=== PATIENT | male | born 1935 | race American Indian/Alaskan Native ===

== ENCOUNTER 2016-08-21 14:54 | Emergency (ER) | payer MEDICARE ==
--- NOTE | 2016-08-21 15:07 | ED PDOC ---
Arrival/HPI - General Time Seen by Provider: 08/21/16 15:06 Historian: Patient - History of Present Illness Narrative History of Present Illness (Text): 08/21/16 15:07 This 80 yo male with pmh HTN, BPH, presents to this ED c/o frontal WANG x 1 day. Patient admits an occasional cough. Patient feels light headedness. WANG is described as burning. Patient denies SOB, CP, diplopia, dysarthria, cmp, n/v, abnormal gait. Time/Duration: Other (1 day) Quality: Pressure Context: Home Past Medical History - Provider Review Nursing Documentation Reviewed: Yes - Infectious Disease Hx of Infectious Diseases: None - Tetanus Immunization Tetanus Immunization: Unknown - Cardiac Hx Hypertension: Yes Hx Pacemaker: No Other/Comment: admitted 05/01/16 for chest pain - Pulmonary Hx Respiratory Disorders: No - Neurological Hx Neurological Disorder: No - HEENT Hx HEENT Disorder: No - Renal Hx Renal Disorder: No - Endocrine/Metabolic Hx Endocrine Disorders: No - Hematological/Oncological Hx Blood Disorders: No - Integumentary Hx Dermatological Disorder: No - Musculoskeletal/Rheumatological Hx Falls: No - Gastrointestinal Hx Gastrointestinal Disorders: No Hx Gastroesophageal Reflux: Yes - Genitourinary/Gynecological Hx Prostate Problems: Yes - Psychiatric Hx Emotional Abuse: No Hx Physical Abuse: No Hx Substance Use: No - Past Surgical History Past Surgical History: No Previous - Surgical History Other/Comment: abd surgery - Anesthesia Hx Anesthesia Reactions: No Hx Malignant Hyperthermia: No - Suicidal Assessment Feels Threatened In Home Enviroment: No Family/Social History - Physician Review Nursing Documentation Reviewed: Yes Family/Social History: No Known Family HX Smoking Status: Never Smoked Hx Alcohol Use: No Hx Substance Use: No Allergies/Home Meds Allergies/Adverse Reactions: Allergies No Known Allergies Allergy (Verified 08/21/16 15:27) Home Medications: Home Meds Medication Instructions Recorded Confirmed Lisinopril/Hydrochlorothiazide 1 each PO DAILY 05/01/16 08/21/16 [Lisinopril-Hctz 20-12.5 mg Tab] Primidone [Mysoline] 50 mg PO HS 05/01/16 08/21/16 Tamsulosin [Flomax] 0.4 mg PO HS 05/01/16 08/21/16 Review of Systems - Review of Systems Constitutional: Normal. absent: Fatigue, Weight Change, Fevers, Night Sweats Eyes: Normal. absent: Vision Changes ENT: Normal Respiratory: Cough. absent: SOB, Sputum, Wheezing Cardiovascular: Normal. absent: Chest Pain, Palpitations Gastrointestinal: Normal. absent: Abdominal Pain, Vomiting, Appetite Changes Genitourinary Male: Normal. absent: Dysuria, Frequency, Hematuria Musculoskeletal: Normal Skin: Normal. absent: Rash Neurological: Headache, Other (vertigo. denies syncope). absent: Focal Weakness, Gait Changes, Speech Changes, Facial Droop, Disequilibrium, Seizure Endocrine: Normal Hemo/Lymphatic: Normal Psychiatric: Normal Physical Exam Vital Signs Temp Pulse Resp BP Pulse Ox 08/21/16 16:39 64 18 148/79 100 08/21/16 15:23 98.0 F 68 18 150/81 100 Temperature: Afebrile Blood Pressure: Normal Pulse: Regular Respiratory Rate: Normal Appearance: Positive for: Well-Appearing, Non-Toxic, Comfortable Pain Distress: None Mental Status: Positive for: Alert and Oriented X 3 - Systems Exam Head: Present: Atraumatic, Normocephalic, Other (Mild frontal sinuses tenderness ) Pupils: Present: PERRL Extroacular Muscles: Present: EOMI Conjunctiva: Present: Normal Ears: Present: Normal, NORMAL TM, Normal Canal. No: Erythema, TM Bulging, Fluid Mouth: Present: Moist Mucous Membranes Pharnyx: Present: Normal. No: ERYTHEMA, EXUDATE, TONSILS ENLARGED Nose (External): Present: Atraumatic Nose (Internal): Present: Normal Inspection. No: Clear Mucous, Rhinorrhea, Purulent Mucous Neck: Present: Normal Range of Motion, Trachea Midline. No: Meningeal Signs, MIDLINE TENDERNESS, Paraspinal Tenderness, Lymphadenopathy Respiratory/Chest: Present: Clear to Auscultation, Good Air Exchange. No: Respiratory Distress, Accessory Muscle Use, Wheezes, Decreased Breath Sounds, Rales, Retracting, Rhonchi, Tachypneic Cardiovascular: Present: Regular Rate and Rhythm, Normal S1, S2. No: Murmurs Abdomen: Present: Normal Bowel Sounds. No: Tenderness, Distention, Peritoneal Signs, Guarding Back: Present: Normal Inspection. No: CVA Tenderness Upper Extremity: Present: Normal Inspection, Normal ROM, NORMAL PULSES, Neurovascularly Intact, Capillary Refill < 2s. No: Cyanosis, Edema Lower Extremity: Present: Normal Inspection, NORMAL PULSES. No: Edema, CALF TENDERNESS Neurological: Present: GCS=15, CN II-XII Intact, Speech Normal, Normal Sensory Function, Normal Cerebellar Funct, Gait Normal, Other (No neuro focal deficits) Skin: Present: Warm, Dry, Normal Color. No: Rashes Psychiatric: Present: Alert, Oriented x 3, Normal Insight, Normal Concentration Medical Decision Making ED Course and Treatment: 08/21/16 20:00 Re-evaluation. Patient feels better. Discussed results and plan with patient who expresses understanding. All questions answered and there is agreement with the plan to discharge home with instructions. Patient stable for discharge. Return if symptoms persist or worsen. Patient has a normal gait. Denies dizziness at this time Re-evaluation Time: 20:00 Reassessment Condition: Re-examined, Improved - Lab Interpretations Lab Results: 08/21/16 16:05 08/21/16 16:05 Lab Results 08/21/16 16:33: Urine Color Yellow, Urine Appearance Clear, Urine pH 8.0, Ur Specific [place] 1.015, Urine Protein Negative, Urine Glucose (UA) Negative, Urine Ketones Negative, Urine Blood Negative, Urine Nitrate Negative, Urine Bilirubin Negative, Urine Urobilinogen 0.2, Ur Leukocyte Esterase Negative 08/21/16 16:05: WBC 5.9, RBC 4.53, Hgb 13.5 L, Hct 38.9 L, MCV 85.9, MCH 29.8, MCHC 34.7, RDW 15.3 H, Plt Count 126, MPV 10.5, Gran % 74.4 H, Lymph % (Auto) 19.7 L, [place] % (Auto) 5.1, Eos % (Auto) 0.8 L, Baso % (Auto) 0.0, Gran # 4.38, Lymph # 1.2, [place] # 0.3, Eos # 0.1, Baso # 0.00, Sodium 140, Potassium 4.3, Chloride 105, Carbon Dioxide 28, Anion Gap 11, BUN 17, Creatinine 0.9, Est GFR ( Amer) > 60, Est GFR (Non-Af Amer) > 60, Random Glucose 102, Calcium 9.0 , Total Bilirubin 0.7, AST 28, ALT 15, Alkaline Phosphatase 48, Total Protein 8.0, Albumin 3.8, Globulin 4.2, Albumin/Globulin Ratio 0.9 L I have reviewed the lab results: Yes Interpretation: No clinic. lab abnormalty - RAD Interpretation Narrative RAD Interpretations (Text): 08/21/16 18:31 Accession No. : [id number] Patient Name / ID : NADJA RONDON / [id number] Exam Date : 08/21/2016 17:22:53 ( Approved ) Study Comment : Sex / Age : M / 80Y Creator : Cordell Pope Dictator : Cordell Pope Clinical Research Administrator : Fire Sprinkler Service Technician : Cordell Pope Approver2 : Report Date : 08/21/2016 17:49:32 My Comment : PROCEDURE: CT HEAD WITHOUT CONTRAST. HISTORY: WANG COMPARISON: None available. TECHNIQUE: Axial computed tomography images were obtained through the head/brain without intravenous contrast. Radiation dose: Total exam DLP = 774.23 mGy-cm. FINDINGS: HEMORRHAGE: No intracranial hemorrhage. BRAIN: Foci of hypodensity seen at the right posterior gonzalez radiata adjacent and just above the right lateral ventricle of uncertain etiology. Findings main PA related to chronic microvascular ischemic disease. Other etiology is not totally excluded. Mild atrophy is noted. Mild white matter changes are also seen likely due to chronic microvascular ischemic disease. VENTRICLES: Unremarkable. No hydrocephalus. CALVARIUM: Unremarkable. PARANASAL SINUSES: Unremarkable as visualized. No significant inflammatory changes. MASTOID AIR CELLS: Partial opacification of the left mastoid is noted. OTHER FINDINGS: None. IMPRESSION: No evidence of acute intracranial hemorrhage territorial infarct mass effect or midline shift. Small foci of hypodensity seen at the posterior aspect of the right coronal radiata of uncertain etiology and may the due to chronic microvascular ischemic disease. Mild atrophy. Partial opacification of the left mastoid. 08/21/16 18:32 Accession No. : [id number] Patient Name / ID : NADJA RONDON / [id number] Exam Date : 08/21/2016 17:22:53 ( Approved ) Study Comment : Sex / Age : M / 80Y Creator : Cordell Pope Dictator : Cordell Pope Clinical Research Administrator : Fire Sprinkler Service Technician : Cordell Pope Approver2 : Report Date : 08/21/2016 17:49:32 My Comment : PROCEDURE: CT HEAD WITHOUT CONTRAST. HISTORY: WANG COMPARISON: None available. TECHNIQUE: Axial computed tomography images were obtained through the head/brain without intravenous contrast. Radiation dose: Total exam DLP = 774.23 mGy-cm. FINDINGS: HEMORRHAGE: No intracranial hemorrhage. BRAIN: Foci of hypodensity seen at the right posterior gonzalez radiata adjacent and just above the right lateral ventricle of uncertain etiology. Findings main PA related to chronic microvascular ischemic disease. Other etiology is not totally excluded. Mild atrophy is noted. Mild white matter changes are also seen likely due to chronic microvascular ischemic disease. VENTRICLES: Unremarkable. No hydrocephalus. CALVARIUM: Unremarkable. PARANASAL SINUSES: Unremarkable as visualized. No significant inflammatory changes. MASTOID AIR CELLS: Partial opacification of the left mastoid is noted. OTHER FINDINGS: None. IMPRESSION: No evidence of acute intracranial hemorrhage territorial infarct mass effect or midline shift. Small foci of hypodensity seen at the posterior aspect of the right coronal radiata of uncertain etiology and may the due to chronic microvascular ischemic disease. Mild atrophy. Partial opacification of the left mastoid. 08/21/16 20:01 CXR: NAD Radiology Orders: 08/21/16 15:53 HEAD W/O CONTRAST [CT] Stat SINUSES W/O CONTRAST [CT] Stat 08/21/16 18:24 CHEST PORTABLE [RAD] Stat - Medication Orders Current Medication Orders: Discontinued Medications Amoxicillin/Clavulanate Potassium (Augmentin 875 Mg-125 Mg Tab) 1 tab PO STAT STA PRN Reason: Protocol Stop: 08/21/16 18:46 Last Admin: 08/21/16 19:19 Dose: 1 TAB Sodium Chloride (Sodium Chloride 0.9%) 500 mls @ 999 mls/hr IV .Q31M STA Stop: 08/21/16 16:24 Last Admin: 08/21/16 16:17 Dose: 999 MLS/HR eMAR Start Stop Document 08/21/16 16:17 EQ (Rec: 08/21/16 16:17 EQ [facility] [id number]) Intravenous Solution Start Date 08/21/16 Start Time 16:17 Lisinopril (Zestril) 20 mg PO STAT STA Stop: 08/21/16 15:56 Last Admin: 08/21/16 16:17 Dose: 20 MG Meclizine HCl (Antivert) 25 mg PO STAT STA Stop: 08/21/16 18:46 Last Admin: 08/21/16 19:19 Dose: 25 MG Metoclopramide HCl (Reglan) 10 mg IVP STAT STA Stop: 08/21/16 15:55 Last Admin: 08/21/16 16:17 Dose: 10 MG IVP Administration Document 08/21/16 16:17 EQ (Rec: 08/21/16 16:17 EQ [facility] [id number]) Charges for Administration # of IVP Administrations 1 Disposition/Present on Arrival - Present on Arrival Any Indicators Present on Arrival: No History of DVT/PE: No History of Uncontrolled Diabetes: No Urinary Catheter: No History Surgical Site Infection Following: None - Disposition Have Diagnosis and Disposition been Completed?: Yes Diagnosis: Mastoiditis, Benign paroxysmal positional vertigo Disposition: HOME/ ROUTINE Disposition Time: 20:02 Patient Plan: Discharge Patient Problems: Current Active Problems Problem Status Diagnosed Benign paroxysmal positional vertigo Acute Mastoiditis Acute Condition: GOOD Discharge Instructions (ExitCare): Mastoiditis (ED), Vertigo (ED) Additional Instructions: Call Ear nose and Throat doctor office for follow up visit in 2-3 days. Also call neurologist for revaluation too. take medication as instructed. return to emergency if symptoms worsen. Prescriptions: Amoxicillin/Clavulanate [Augmentin 875 MG-125 MG] 1 tab PO BID #20 tab Meclizine [Meclizine*] 25 mg PO Q6 PRN #20 tab PRN Reason: Dizziness Referrals: Luz Elena Vazquez MD [Primary Care Provider] - Follow up with primary Leon Brody DO [Staff Provider] - Follow up with primary
[2016-08-21 15:25] VITALS: RESP 18; TEMP 98; O2SAT 100
[2016-08-21 15:50] VITALS: BMI 30.5
[2016-08-21] MEDS ORDERED: Sodium Chloride 0.9% 500 ML IV STA (15:54)
[2016-08-21 16:18] LABS: ADD MANUAL DIFF? NO
[2016-08-21 16:30] LABS: EOS # 0.1 (0.0-0.7); EOS % 0.8 % (1.5-5.0); GRAN # 4.38 (1.4-6.5); GRAN % 74.4 % (50.0-68.0); HEMATOCRIT 38.9 % (42.0-52.0); LYMPH # 1.2 (1.2-3.4); LYMPH % 19.7 % (22.0-35.0); MEAN CELL VOLUME 85.9 fL (80.0-105.0); MEAN CORPUSCULAR HEMOGLOBIN 29.8 pg (25.0-35.0); MEAN CORPUSCULAR HGB CONC 34.7 g/dl (31.0-37.0); MEAN PLATELET VOLUME 10.5 fl (7.0-11.0); MONO # 0.3 (0.1-0.6); MONO % 5.1 % (1.0-6.0); PLATELET COUNT 126 10^3/uL (120.0-450.0); RED CELL DISTRIBUTION WIDTH 15.3 % (11.5-14.5); WHITE BLOOD COUNT 5.9 10^3/ul (4.5-11.0)
[2016-08-21 16:32] LABS: ALB/GLOB RATIO 0.9 (1.1-1.8); ALKALINE PHOSPHATASE 48 U/L (38-133); ALT/SGPT 15 U/L (7-56); AST/SGOT 28 U/L (15-59); BILIRUBIN,TOTAL 0.7 mg/dL (0.2-1.3); BLOOD UREA NITROGEN 17 mg/dL (7-21); CARBON DIOXIDE 28 mmol/L (21-33); CHLORIDE 105 mmol/L (98-107); GFR AFRICAN-AMERICAN > 60; GLUCOSE,RANDOM 102 mg/dL (70-110); POTASSIUM 4.3 mmol/L (3.6-5.0); SODIUM 140 mmol/L (132-148)
[2016-08-21 17:36] LABS: URINE BILIRUBIN NEGATIVE (NEGATIVE); URINE BLOOD NEGATIVE (NEGATIVE); URINE GLUCOSE (UA) NEGATIVE (NEGATIVE); URINE KETONE NEGATIVE (NEGATIVE); URINE LEUKOCYTE ESTERASE NEGATIVE Leu/uL (NEGATIVE); URINE PROTEIN NEGATIVE mg/dL (<30 mg/dL); URINE UROBILINOGEN 0.2 E.U./dL (<1 E.U./dL)
[2016-08-21 17:43] LABS: URINE APPEARANCE CLEAR (CLEAR); URINE COLOR YELLOW (YELLOW)
--- NOTE | 2016-08-21 17:51 | CT ---
PROCEDURE: CT HEAD WITHOUT CONTRAST. HISTORY: WANG COMPARISON: None available. TECHNIQUE: Axial computed tomography images were obtained through the head/brain without intravenous contrast. Radiation dose: Total exam DLP = 774.23 mGy-cm. FINDINGS: HEMORRHAGE: No intracranial hemorrhage. BRAIN: Foci of hypodensity seen at the right posterior gonzalez radiata adjacent and just above the right lateral ventricle of uncertain etiology. Findings main PA related to chronic microvascular ischemic disease. Other etiology is not totally excluded. Mild atrophy is noted. Mild white matter changes are also seen likely due to chronic microvascular ischemic disease. VENTRICLES: Unremarkable. No hydrocephalus. CALVARIUM: Unremarkable. PARANASAL SINUSES: Unremarkable as visualized. No significant inflammatory changes. MASTOID AIR CELLS: Partial opacification of the left mastoid is noted. OTHER FINDINGS: None. IMPRESSION: No evidence of acute intracranial hemorrhage territorial infarct mass effect or midline shift. Small foci of hypodensity seen at the posterior aspect of the right coronal radiata of uncertain etiology and may the due to chronic microvascular ischemic disease. Mild atrophy. Partial opacification of the left mastoid.
--- NOTE | 2016-08-21 18:04 | CT ---
PROCEDURE: CT SINUSES WITHOUT CONTRAST HISTORY: frontal and maxillary sinus tenderness COMPARISON: None TECHNIQUE: Contiguous axial CT images of the paranasal sinuses were obtained. Coronal and sagittal reformats were generated. Radiation dose: Total exam DLP = 679.86 mGy-cm. FINDINGS: FRONTAL SINUSES: The frontal sinuses are well developed. There is no mucosal thickening or fluid. ETHMOID SINUSES: The ethmoid air cells are well developed. There is no mucosal thickening or fluid. SPHENOID SINUSES: The sphenoid sinus is well developed. There is pneumatization of the lateral recesses. There is no mucosal thickening or fluid. MAXILLARY SINUSES: The maxillary sinuses are well developed. There is mild mucosal thickening and a small retention cyst/ polyp in the right maxillary sinus. SINUS DRAINAGE: Osteomeatal complexes, frontal ethmoid and sphenoid ethmoid recesses are clear. NASAL SEPTUM: Deviated to the right. MASS: None. SKULL BASE: Unremarkable. TEMPORAL BONES: Middle ears and mastoid grossly unremarkable. OTHER FINDINGS: None. IMPRESSION: Mild mucosal thickening in the right maxillary sinus and a small retention cyst/ polyp. No evidence of acute sinusitis. Nasal septum deviated to the right.
[2016-08-21] MEDS ORDERED: Amoxicillin-Clav 875-125 mg Tab PO STA (18:45)
[2016-08-21 20:32] VITALS: BP 143/65; PULSE 65
--- NOTE | 2016-08-22 09:21 | RAD ---
HISTORY: cough COMPARISON: No prior. FINDINGS: LUNGS: No active pulmonary disease. PLEURA: No significant pleural effusion identified, no pneumothorax apparent. CARDIOVASCULAR: Normal. OSSEOUS STRUCTURES: No significant abnormalities. VISUALIZED UPPER ABDOMEN: Normal. OTHER FINDINGS: None. IMPRESSION: No active disease.
== END 2016-08-21 20:33 | disposition home or self-care (01) ==
LOC: ED 14:54
DX: H81.10 Benign paroxysmal vertigo, unspecified ear (principal); H70.90 Unspecified mastoiditis, unspecified ear; I10 Essential (primary) hypertension
CPT/HCPCS: 70450; 70486; 71010; 80053; 81003; 85025; 87086; 96374; 99285; J2765; J7040

== ENCOUNTER 2016-09-23 18:50 | Observation (INO) | payer MEDICARE, OTHER ==
[2016-09-23 19:12] LABS: ADD MANUAL DIFF? NO
[2016-09-23 19:46] LABS: ALKALINE PHOSPHATASE 63 U/L (38-133); ALT/SGPT 24 U/L (7-56); AST/SGOT 30 U/L (15-59); BILIRUBIN,TOTAL 0.5 mg/dL (0.2-1.3); BLOOD UREA NITROGEN 21 mg/dL (7-21); CARBON DIOXIDE 27 mmol/L (21-33); CHLORIDE 104 mmol/L (98-107); GFR AFRICAN-AMERICAN > 60; GLUCOSE,RANDOM 97 mg/dL (70-110); POTASSIUM 3.7 mmol/L (3.6-5.0); SODIUM 139 mmol/L (132-148); TOTAL PROTEIN 8.3 g/dL (5.8-8.3)
[2016-09-23 19:49] LABS: BASO # 0.01 K/mm3 (0.0-2.0); BASO % 0.2 % (0.0-3.0); EOS # 0.2 (0.0-0.7); EOS % 2.4 % (1.5-5.0); GRAN # 3.27 (1.4-6.5); GRAN % 53.2 % (50.0-68.0); HEMATOCRIT 37.3 % (42.0-52.0); LYMPH # 2.1 (1.2-3.4); LYMPH % 34.8 % (22.0-35.0); MEAN CORPUSCULAR HEMOGLOBIN 30.1 pg (25.0-35.0); MEAN CORPUSCULAR HGB CONC 35.4 g/dl (31.0-37.0); MEAN PLATELET VOLUME 11.1 fl (7.0-11.0); MONO # 0.6 (0.1-0.6); MONO % 9.4 % (1.0-6.0); PLATELET COUNT 135 10^3/uL (120.0-450.0); RED CELL DISTRIBUTION WIDTH 14.9 % (11.5-14.5); WHITE BLOOD COUNT 6.2 10^3/ul (4.5-11.0)
[2016-09-23 19:55] LABS: PARTIAL THROMBOPLASTIN TIME 27.1 Seconds (23.7-30.8)
[2016-09-23 19:56] LABS: TROPONIN I 0.05 ng/mL
[2016-09-23] MEDS ORDERED: Aspirin 325 mg EC Tablets PO STA (19:59)
[2016-09-23] MEDS ORDERED: Nitroglycerin 2% Ointment Foilpak UD TOP STA (19:59)
[2016-09-23] MEDS: Heparin25000 units/250ml 1/2NS 25,000 UNITS/250 ML BAG IV SCH (20:43)
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
[2016-09-24 02:20] LABS: TROPONIN I 0.05 ng/mL
[2016-09-24 02:53] VITALS: BMI 29.0
[2016-09-24 06:28] LABS: HEMATOCRIT 35.2 % (42.0-52.0); MEAN CELL VOLUME 86.5 fL (80.0-105.0); MEAN CORPUSCULAR HEMOGLOBIN 29.5 pg (25.0-35.0); MEAN CORPUSCULAR HGB CONC 34.1 g/dl (31.0-37.0); MEAN PLATELET VOLUME 11.5 fl (7.0-11.0); RED CELL DISTRIBUTION WIDTH 15.1 % (11.5-14.5); WHITE BLOOD COUNT 6.1 10^3/ul (4.5-11.0)
[2016-09-24 06:36] LABS: BLOOD UREA NITROGEN 20 mg/dL (7-21); CARBON DIOXIDE 29 mmol/L (21-33); CHLORIDE 105 mmol/L (98-107); GFR AFRICAN-AMERICAN > 60; GLUCOSE,RANDOM 85 mg/dL (70-110); MAGNESIUM 2.2 mg/dL (1.7-2.2); PHOSPHOROUS 3.7 mg/dL (2.5-4.5); POTASSIUM 3.4 mmol/L (3.6-5.0); SODIUM 140 mmol/L (132-148)
--- NOTE | 2016-09-24 07:40 | CP.PCM.PN ---
Addendum entered and electronically signed by Sadie Mi DO 09/24/16 13:17 : Cardio assessment: 04/2016: ECHO: 60-65% LVEF, mild LVH, mild aortic regurgitation, mild aortic stenosis vs aortic sclerosis, mild mitral regurgitation 04/2016: nuclear stress cardiac test: LVEF: 54%, probably negative SPECT performance study Original Note: <Sadie Mi - Last Filed: 09/24/16 13:07> Subjective - Date & Time of Evaluation Date of Evaluation: 09/24/16 Time of Evaluation: 07:20 - Subjective Subjective: ICU progress note for Dr. Boni Ramírez Pt s/e at bedside in the ICU this AM. NAEO. Patient states that his chest pain resolved in the ED and has not recurred since. Did wake up twice in the night to urinate, which is normal for him with this BPH. Denies any shoulder or jaw pain, palpitations, SOB, cough, fevers, chills, light headedness, heartburn, nausea, vomiting, dysuria, hematuria, back pain, or lower extremity swelling or pain. Objective - Vital Signs/Intake and Output Vital Signs (last 24 hours): Temp Pulse Resp BP Pulse Ox 98.2 F 53 L 19 158/73 H 95 09/24/16 01:08 09/24/16 05:50 09/24/16 05:50 09/24/16 05:00 09/24/16 05:50 Intake and Output: 09/24/16 09/24/16 06:59 18:59 Intake Total 509 Output Total 300 Balance 209 - Medications Medications: Current Medications Aspirin (Aspirin) 325 mg PO DAILY [facility] Clopidogrel Bisulfate (Plavix) 75 mg PO DAILY [facility] Heparin Sodium/Sodium Chloride (Heparin 83912 Units/250ml 1/2 Normal Saline) 25 ,000 units in 250 mls @ 9.798 mls/hr IV .Q24H AMADOU; 12 UNITS/KG/HR PRN Reason: Protocol Last Admin: 09/23/16 20:43 Dose: 9.798 mls/hr Sodium Chloride (Sodium Chloride 0.9%) 1,000 mls @ 75 mls/hr IV .[id number] [facility] Potassium Chloride (Potassium Chloride 20 Meq/100 Ml) 20 meq in 100 mls @ 50 mls/hr IVPB ONCE ONE Stop: 09/24/16 09:31 Potassium Chloride (Potassium Chloride 10 Meq/100 Ml) 10 meq in 100 mls @ 100 mls/hr IVPB ONCE ONE Stop: 09/24/16 08:31 Metoprolol Tartrate (Lopressor) 25 mg PO BID [facility] Pantoprazole Sodium (Protonix Inj) 40 mg IVP DAILY [facility] Stop: 09/25/16 10:01 Pantoprazole Sodium (Protonix Ec Tab) 40 mg PO 0630 [facility] - Labs Labs: 09/24/16 05:30 09/24/16 05:30 PT 10.8 Seconds (9.9-11.8) 09/23/16 19:05 INR 1.00 (0.93-1.08) 09/23/16 19:05 APTT 61.7 Seconds (23.7-30.8) H 09/24/16 05:30 - Constitutional Appears: Well, Non-toxic, No Acute Distress - Head Exam Head Exam: ATRAUMATIC, NORMOCEPHALIC - Eye Exam Eye Exam: Normal appearance. absent: Conjunctival injection, Scleral icterus - ENT Exam ENT Exam: Mucous Membranes Moist, Normal Oropharynx - Respiratory Exam Respiratory Exam: Clear to Ausculation Bilateral, NORMAL BREATHING PATTERN. absent: Accessory Muscle Use, Respiratory Distress - Cardiovascular Exam Cardiovascular Exam: RRR, +S1, +S2. absent: Clicks, Gallop, Murmur - GI/Abdominal Exam GI & Abdominal Exam: Soft. absent: Distended, Tenderness, Rebound - Extremities Exam Extremities Exam: Normal Inspection. absent: Calf Tenderness, Pedal Edema, Tenderness - Back Exam Back Exam: NORMAL INSPECTION. absent: CVA tenderness (L), CVA tenderness (R), vertebral tenderness - Neurological Exam Neurological Exam: Alert, Awake, CN II-XII Intact, Oriented x3 Neuro motor strength exam: Left Upper Extremity: 5, Right Upper Extremity: 5, Left Lower Extremity: 5, Right Lower Extremity: 5 - Psychiatric Exam Psychiatric exam: Normal Affect, Normal Mood - Skin Skin Exam: Dry, Intact, Normal Color, Warm Assessment and Plan - Assessment and Plan (Free Text) Assessment: 80 M with PMH of HTN, GERD, and BPH who presented for worsening chest pain on exertion for 6 months Neuro: AA&Ox3 CN II-XII intact No gross neurological deficits Plan Monitor for alterations in mental status Pulmonary: No respiratory distress, SPO2 stable on RA CXR: NAPD Plan Continue to monitor Cardio: Chest pain--resolved HR: 66 (42-74 over past 12 hours) BP: 132/61 (127/65-171/92 per 12 hours) EKG: QT elongation, persistent t-wave inversions in lateral leads, questionable LVH--possible anterolateral ischemia Troponin: 0.05->0.05->0.03 this AM Plan Follow up Lipid panel Daily CBC/BMP Cardiac cath tomorrow per cardiology consult Plavix 75mg PO, ASA 325, metoprolol 12.5 BID Heparin drip 12u/kg/h: Hold at 1AM 09/25 for cardiac cath Continue tele monitor Continue admission to ICU pending cardiac cath GI: Complains of chronic constipation Exam benign Plan Restart home miralax regimen: 17gm PO daily Continue to monitor Nephro: History of BPH with nocturia 1-2x/night No complaints at this time UOP: 0.68cc/kg/h (adequate) Hypokalemia: 3.4 down from 3.7 yesterday Plan Restart home tamsulosin 30mEq KCl IV Continue to monitor I&O's Repeat BMP tomorrow AM Supplement electrolytes PRN Heme/Onc: H/H 12.0/35.2 down from 13.2/37.3 yesterday Chronic mild anemia Plan Continue to monitor MSK: History of L knee arthritis with arthralgias Plan: Continue to monitor ASA 325 Prophylactic Measures: DVT: Heparin drip GI: Protonix 40 mg IV daily Dispo: Continue inpatient admission to the ICU for continued monitoring pending cardiac cath tomorrow Diet: HHD IVF: NS@75cc Patient seen and discussed with Dr. Boni Mi, PGY1 <Darrell PUGH,Boni H - Last Filed: 09/24/16 14:02> Objective - Vital Signs/Intake and Output Vital Signs (last 24 hours): Temp Pulse Resp BP Pulse Ox 99.1 F 62 22 118/69 99 09/24/16 13:55 09/24/16 13:40 09/24/16 13:40 09/24/16 13:00 09/24/16 13:40 Intake and Output: 09/24/16 09/24/16 06:59 18:59 Intake Total 509 Output Total 300 Balance 209 - Medications Medications: Current Medications Aspirin (Aspirin) 325 mg PO DAILY [facility] Last Admin: 09/24/16 09:13 Dose: 325 mg Clopidogrel Bisulfate (Plavix) 75 mg PO DAILY [facility] Last Admin: 09/24/16 09:12 Dose: 75 mg Heparin Sodium/Sodium Chloride (Heparin 12792 Units/250ml 1/2 Normal Saline) 25 ,000 units in 250 mls @ 9.798 mls/hr IV .Q24H AMADOU; 12 UNITS/KG/HR PRN Reason: Protocol Stop: 09/25/16 01:00 Last Admin: 09/23/16 20:43 Dose: 9.798 mls/hr Sodium Chloride (Sodium Chloride 0.9%) 1,000 mls @ 75 mls/hr IV .[id number] [facility] Metoprolol Tartrate (Lopressor) 12.5 mg PO BID [facility] Pantoprazole Sodium (Protonix Inj) 40 mg IVP DAILY [facility] Stop: 09/25/16 10:01 Last Admin: 09/24/16 09:12 Dose: 40 mg Pantoprazole Sodium (Protonix Inj) 40 mg IVP DAILY [facility] Stop: 09/25/16 10:01 Pantoprazole Sodium (Protonix Ec Tab) 40 mg PO 0630 [facility] Polyethylene Glycol (Miralax) 17 gm PO DAILY [facility] Last Admin: 09/24/16 09:19 Dose: 17 gm Tamsulosin HCl (Flomax) 0.4 mg PO HS [facility] - Labs Labs: 09/24/16 05:30 09/24/16 05:30 PT 10.8 Seconds (9.9-11.8) 09/23/16 19:05 INR 1.00 (0.93-1.08) 09/23/16 19:05 APTT 51.1 Seconds (23.7-30.8) H 09/24/16 12:03 Attending/Attestation - Attestation I have personally seen and examined this patient.: Yes I have fully participated in the care of the patient.: Yes I have reviewed all pertinent clinical information, including history, physical exam and plan: Yes Notes (Text): 09/24/16 14:01 80 y/o M w/ Unstable angina Treated with Nitro, asprin, Beta Blcokers, plavix and started on Heparin drip per protocol. Cardiology plans for cardiac cath Friday. No further CP today. HGB>9. Minimal o2. EKG lateral changes stable. Trop mild elevation. cc time 55 min
--- NOTE | 2016-09-24 08:15 | RAD ---
HISTORY: cp COMPARISON: 08/21/2016 FINDINGS: LUNGS: No active pulmonary disease. PLEURA: No significant pleural effusion identified, no pneumothorax apparent. CARDIOVASCULAR: Normal. OSSEOUS STRUCTURES: No significant abnormalities. VISUALIZED UPPER ABDOMEN: Normal. OTHER FINDINGS: None. IMPRESSION: No active disease.
[2016-09-24] MEDS: POLYETHYLENE GLYCOL 3350 17 GM/Dose PACKET PO SCH (09:19)
[2016-09-24 09:31] LABS: CHOLESTEROL 167 mg/dL (130-200)
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
--- NOTE | 2016-09-24 21:12 | CARD ---
APPROVED REPORT EKG Measurement Heart [id number] NM 150P28 [id number] <Conclusion> Sinus bradycardia T wave abnormality, consider anterolateral ischemia Prolonged QT Abnormal ECG
--- NOTE | 2016-09-24 22:54 | CARD ---
APPROVED REPORT EKG Measurement Heart [id number] SD 134P34 [id number] <Conclusion> Normal sinus rhythm T wave abnormality, consider anterior ischemia Abnormal ECG
--- NOTE | 2016-09-24 22:54 | CARD ---
APPROVED REPORT EKG Measurement Heart [id number] FL 142P39 [id number] <Conclusion> Normal sinus rhythm T wave abnormality, consider anterolateral ischemia Prolonged QT Abnormal ECG
[2016-09-24] MEDS: Sodium Chloride 0.9% 1,000 ML IV SCH (22:57)
[2016-09-24] MEDS: Heparin25000 units/250ml 1/2NS 25,000 UNITS/250 ML BAG IV SCH (23:04)
[2016-09-25 05:38] LABS: ADD MANUAL DIFF? NO
[2016-09-25 05:49] LABS: BASO # 0.01 K/mm3 (0.0-2.0); BASO % 0.1 % (0.0-3.0); EOS # 0.1 (0.0-0.7); EOS % 1.9 % (1.5-5.0); GRAN # 4.85 (1.4-6.5); GRAN % 65.2 % (50.0-68.0); HEMATOCRIT 36.7 % (42.0-52.0); LYMPH # 1.8 (1.2-3.4); LYMPH % 24.1 % (22.0-35.0); MEAN CELL VOLUME 85.2 fL (80.0-105.0); MEAN CORPUSCULAR HEMOGLOBIN 29.2 pg (25.0-35.0); MEAN CORPUSCULAR HGB CONC 34.3 g/dl (31.0-37.0); MEAN PLATELET VOLUME 10.6 fl (7.0-11.0); MONO # 0.7 (0.1-0.6); MONO % 8.7 % (1.0-6.0); PLATELET COUNT 124 10^3/uL (120.0-450.0); RED CELL DISTRIBUTION WIDTH 14.8 % (11.5-14.5); WHITE BLOOD COUNT 7.4 10^3/ul (4.5-11.0)
[2016-09-25 06:02] LABS: ALB/GLOB RATIO 0.9 (1.1-1.8); ALKALINE PHOSPHATASE 52 U/L (38-133); ALT/SGPT 27 U/L (7-56); AST/SGOT 30 U/L (15-59); BILIRUBIN,TOTAL 1.1 mg/dL (0.2-1.3); BLOOD UREA NITROGEN 12 mg/dL (7-21); CALCIUM 8.7 mg/dL (8.4-10.5); CARBON DIOXIDE 29 mmol/L (21-33); CHLORIDE 104 mmol/L (98-107); CHOLESTEROL 171 mg/dL (130-200); GFR AFRICAN-AMERICAN > 60; GLUCOSE,RANDOM 93 mg/dL (70-110); MAGNESIUM 1.8 mg/dL (1.7-2.2); PHOSPHOROUS 3.3 mg/dL (2.5-4.5); POTASSIUM 3.5 mmol/L (3.6-5.0); SODIUM 140 mmol/L (132-148); TOTAL PROTEIN 7.7 g/dL (5.8-8.3)
[2016-09-25] MEDS ORDERED: Pantoprazole 40 mg EC Tab PO SCH (06:30)
[2016-09-25] MEDS: Sodium Chloride 0.9% 1,000 ML IV SCH (07:02)
--- NOTE | 2016-09-25 07:09 | CP.PCM.PN ---
<Sadie Mi - Last Filed: 09/25/16 11:38> Subjective - Date & Time of Evaluation Date of Evaluation: 09/25/16 Time of Evaluation: 06:45 - Subjective Subjective: ICU progress note for Dr. Boni Ramírez Pt s/e at bedside this AM. Patient states that he had one episode of mild left sided chest pain overnight that resolved on its own after a few moments. Also reports a cough productive of small amount of thick mucus. Denies any pain radiating to his jaw or shoulder, SOB, post nasal drip, nasal congestion, fevers , chills, nausea, vomiting, dysuria, hematuria, pain or swelling in his legs. Patient denies a bowel movement but tolerated his diet yesterday well. Had 2-3 episodes of nocturia, which is his baseline 1040: Patient underwent a cardiac catheterization through the left radial artery and received a drug eluting stent in the proximal LAD for 90% stenosis. Tolerated procedure well with no complications and is now resting comfortably with stable vitals and no discomfort. Objective - Vital Signs/Intake and Output Vital Signs (last 24 hours): Temp Pulse Resp BP Pulse Ox 36.9 C 82 19 146/76 100 09/25/16 06:54 09/25/16 06:54 09/25/16 06:54 09/25/16 06:54 09/25/16 06:54 Intake and Output: 09/25/16 09/25/16 06:59 18:59 Intake Total 1120 Output Total 1300 Balance -180 - Medications Medications: Current Medications Aspirin (Aspirin) 325 mg PO DAILY [facility] Last Admin: 09/25/16 06:47 Dose: 325 mg Clopidogrel Bisulfate (Plavix) 75 mg PO DAILY [facility] Last Admin: 09/25/16 06:47 Dose: 75 mg Sodium Chloride (Sodium Chloride 0.9%) 1,000 mls @ 75 mls/hr IV .[id number] [facility] Last Admin: 09/24/16 22:57 Dose: 75 mls/hr Potassium Chloride (Potassium Chloride 10 Meq/100 Ml) 10 meq in 100 mls @ 100 mls/hr IVPB Q2H [facility] Stop: 09/25/16 09:59 Last Admin: 09/25/16 07:00 Dose: 100 mls/hr Metoprolol Tartrate (Lopressor) 12.5 mg PO BID [facility] Last Admin: 09/25/16 06:47 Dose: 12.5 mg Pantoprazole Sodium (Protonix Inj) 40 mg IVP DAILY [facility] Stop: 09/25/16 10:01 Last Admin: 09/25/16 06:47 Dose: 40 mg Pantoprazole Sodium (Protonix Ec Tab) 40 mg PO 0630 [facility] Polyethylene Glycol (Miralax) 17 gm PO DAILY [facility] Last Admin: 09/24/16 09:19 Dose: 17 gm Tamsulosin HCl (Flomax) 0.4 mg PO HS [facility] Last Admin: 09/24/16 22:57 Dose: 0.4 mg - Labs Labs: 09/25/16 05:15 09/25/16 05:15 PT 10.8 Seconds (9.9-11.8) 09/23/16 19:05 INR 1.00 (0.93-1.08) 09/23/16 19:05 APTT 27.4 Seconds (23.7-30.8) 09/25/16 05:15 - Constitutional Appears: Well, Non-toxic, No Acute Distress - Head Exam Head Exam: ATRAUMATIC, NORMOCEPHALIC - Eye Exam Eye Exam: Normal appearance. absent: Conjunctival injection, Scleral icterus - ENT Exam ENT Exam: Mucous Membranes Moist Additional comments: Posterior pharynx without any lesions but thick yellow mucous visible - Respiratory Exam Respiratory Exam: Clear to Ausculation Bilateral, NORMAL BREATHING PATTERN. absent: Accessory Muscle Use, Respiratory Distress - Cardiovascular Exam Cardiovascular Exam: RRR, +S1, +S2, Murmur (II/ systolic murmur over the R 2nd intercostal listening post) - GI/Abdominal Exam GI & Abdominal Exam: Soft. absent: Distended, Tenderness, Mass - Extremities Exam Extremities Exam: absent: Calf Tenderness, Pedal Edema, Tenderness Additional comments: pedal pulses present BL. TR band in place on left wrist, no signs of active bleeding or swelling, hands cool to the touch BL, but good capillary refill BL. - Back Exam Back Exam: NORMAL INSPECTION. absent: CVA tenderness (L), CVA tenderness (R) - Neurological Exam Neurological Exam: Alert, Awake, Oriented x3 - Psychiatric Exam Psychiatric exam: Normal Affect, Normal Mood - Skin Skin Exam: Dry, Intact, Normal Color, Warm Assessment and Plan - Assessment and Plan (Free Text) Assessment: 80 M with PMH of HTN, GERD, and BPH who presented for worsening chest pain on exertion for 6 months Neuro: AA&Ox3 CN II-XII intact No gross neurological deficits Plan Monitor for alterations in mental status Pulmonary: Complaining of mild cough Lung sounds clear to auscultation No respiratory distress, SPO2 stable on RA WBC: wnl Plan Continue to monitor Cardio: Chest pain recurred last night, less severe than presentation, resolved after a few moments HR: Stable BP: Mildly elevated overnight, currently 147/76 Lipid panel: LDL 76, HDL: 62 Cardiac catheterization with drug eluting stent placed in the proximal LAD for 90% stenosis Plan Daily CBC/BMP Start lipitor 40mg DIN Continue tele monitor Transfer to telemetry floor at 2PM if stable GI: Complains of chronic constipation-no BM for 1 day Exam benign Plan Restart home miralax regimen: 17gm PO daily Continue to monitor Nephro: History of BPH with nocturia 2x/night No complaints at this time UOP: 0.63cc/kg/h (adequate) Hypokalemia: 3.5 up from 3.4 yesterday s/p 30mEq IV M.8 down from 2.1 yesterday Plan Restart home tamsulosin 20mEq KCl IV Continue to monitor I&O's Repeat BMP tomorrow AM Repeat Mg tomorrow AM Supplement electrolytes PRN Heme/Onc: H/H 12.6/36.7 up from 12.0/35.2 yesterday Chronic mild anemia according to previous admissions Platelet dropped from 124,000 this AM to 6,000 after catheterization, manual platelet count: 10,000 Was on heparin drip for 36 hours, d/c'd 1AM today. Integrellin 40mg IV 1x dose used in the cardiac cath Plan F/u CBC at one PM f/u fibrin split products, fibrinogen, PT and PTT 2 units of platelets on hold ID: New onset of cough Lungs CTAB WBC: wnl Plan Continue to monitor respiratory exam, SPO2, and WBC MSK: History of L knee arthritis with arthralgias Plan: Continue to monitor Prophylactic Measures: DVT: SCD GI: Protonix 40 mg IV daily Dispo: Continue inpatient admission to the ICU pending repeat platelet count at one PM. Possible transfer to telemetry if thrombocytopenia resolves and patient remains stable Diet: HHD IVF: NS@100cc Patient seen and discussed with Dr. Boni Mi, PGY1 <Boni Ramírez MD - Last Filed: 09/25/16 12:46> Objective - Vital Signs/Intake and Output Vital Signs (last 24 hours): Temp Pulse Resp BP Pulse Ox 97.6 F 67 56 H 130/90 100 09/25/16 11:23 09/25/16 12:34 09/25/16 12:29 09/25/16 12:29 09/25/16 12:29 Intake and Output: 09/25/16 09/25/16 06:59 18:59 Intake Total 1120 Output Total 1300 Balance -180 - Medications Medications: Current Medications Aspirin (Ecotrin) 81 mg PO DAILY [facility] Atorvastatin Calcium (Lipitor) 40 mg PO DIN [facility] Clopidogrel Bisulfate (Plavix) 75 mg PO DAILY [facility] Last Admin: 09/25/16 09:39 Dose: Not Given Hydralazine HCl (Apresoline) 10 mg PO QID PRN PRN Reason: FOR SBP>170 7 diastolic>100 Hydrochlorothiazide (Microzide) 12.5 mg PO DAILY [facility] Sodium Chloride (Sodium Chloride 0.9%) 1,000 mls @ 100 mls/hr IV .Q10H [facility] Stop: 09/25/16 14:00 Last Admin: 09/25/16 09:39 Dose: 100 mls/hr Lisinopril (Zestril) 10 mg PO DAILY [facility] Metoprolol Tartrate (Lopressor) 12.5 mg PO BID [facility] Last Admin: 09/25/16 09:40 Dose: Not Given Pantoprazole Sodium (Protonix Ec Tab) 40 mg PO 0630 [facility] Polyethylene Glycol (Miralax) 17 gm PO DAILY [facility] Last Admin: 09/24/16 09:19 Dose: 17 gm Tamsulosin HCl (Flomax) 0.4 mg PO HS [facility] Last Admin: 09/24/16 22:57 Dose: 0.4 mg - Labs Labs: 09/25/16 09:30 09/25/16 09:30 PT 11.6 Seconds (9.9-11.8) 09/25/16 11:10 INR 1.07 (0.93-1.08) 09/25/16 11:10 APTT 32.9 Seconds (23.7-30.8) H 09/25/16 11:10 Attending/Attestation - Attestation I have personally seen and examined this patient.: Yes I have fully participated in the care of the patient.: Yes I have reviewed all pertinent clinical information, including history, physical exam and plan: Yes Notes (Text): 09/25/16 12:43 80 y/o M w/ NSTEMi Unstabe Angina S/P Cardiac catherization today L Radial approach Integrelin and Heparin used during and before the case. Post -op found to have platelet count of 6. Unlikely for HARRY, more likely transient due to medication induced. Send labs for ehmolytic anemia, and HARRY, DIC Platelets on hold. If repeat at 1p.m continues to be < 20k, platelets to be given. No signs of bleeding, CP, SOb or change in mental status currently. cc time 55 min
[2016-09-25] MEDS ORDERED: Lidocaine 2% Inj (20ml) ONE (07:56)
[2016-09-25] MEDS ORDERED: Nitroglycerin 50mg in D5W 50 MG/250 ML BOTTLE IV ONE (07:57)
[2016-09-25] MEDS ORDERED: Midazolam 2 MG/2 ML VIAL ONE (08:26)
[2016-09-25] MEDS ORDERED: Eptifibatide 20 mg/10mL Inj IVP ONE (08:49)
[2016-09-25] MEDS ORDERED: Iohexol 350 MG/100 ML VIAL ONE (08:52)
[2016-09-25] MEDS ORDERED: Iohexol 350mgl/ml 50 ML ONE (08:52)
[2016-09-25] MEDS ORDERED: Sodium Chloride 0.9% 1,000 ML IV SCH (09:30)
[2016-09-25 09:41] LABS: ADD MANUAL DIFF? NO
[2016-09-25 09:52] LABS: BLOOD UREA NITROGEN 12 mg/dL (7-21); CALCIUM 8.3 mg/dL (8.4-10.5); CARBON DIOXIDE 28 mmol/L (21-33); CHLORIDE 102 mmol/L (98-107); GFR AFRICAN-AMERICAN > 60; GLUCOSE,RANDOM 102 mg/dL (70-110); POTASSIUM 4.1 mmol/L (3.6-5.0); SODIUM 137 mmol/L (132-148)
--- NOTE | 2016-09-25 10:00 | PN ---
DATE: 09/25/2016 REASON FOR CONSULTATION AND FOLLOWUP: Acute coronary syndrome, chest pain, status post catheterizati on, status post PTCA of LAD proximal. BRIEF CLINICAL HISTORY: This is a 80-year-old male with a past medical history significant for benig n prostatic hypertrophy, hypertension, having chest pain, admitted with unstable angina. Subsequentl y, the patient underwent cardiac catheterization that revealed left main essentially free of signific ant disease, proximal LAD 90% stenosis at the takeoff of diagonal 1. Circumflex shows some luminal i rregularity. RCA is dominant, large caliber vessel, essentially free of significant disease. LV gra m done that showed ejection fraction 55-60%. Peak to peak gradient on pullback 10-12 and 20 mmHg acr oss the aortic valve noted, consistent with mild aortic stenosis. The patient successfully underwent PTCA with a drug-eluting stent in LAD from the left radial approac h, stable. Denies any chest pain, shortness of breath, any palpitation. PHYSICAL EXAMINATION: VITAL SIGNS: Temperature afebrile, heart rate 80, blood pressure 146/80. HEENT: PERRLA. Extraocular muscles intact. NECK: Supple. No carotid bruits. No thyromegaly. CHEST: Clear to auscultation. HEART: S1, S2 regular. ABDOMEN: Soft. EXTREMITIES: Clubbing and cyanosis negative. LABORATORY DATA: WBC 7.4, hemoglobin 12.____, hematocrit 36.7, platelet count 124. Chemistry shows sodium 140, potassium 3.5, chloride 104, carbon dioxide 20, anion gap of 11, BUN 12, creatinine 0.8. IMPRESSION: Acute coronary artery syndrome, unstable angina, status post percutaneous transluminal c oronary angioplasty of left anterior descending 90% stenosis, proximal, at the takeoff of diagonal 1 origin, mild aortic stenosis, hypertension, hypokalemia. RECOMMENDATION: Supplement potassium. Continue aspirin and Plavix. The patient will go to ICU and will be transferred back to telemetry after 2 p.m. Mandatory to continue aspirin and Plavix for 1 ye ar. Will start AUGUSTINE inhibitor from tomorrow as patient got 160 mL of contrast dye load. Will follow with you. Thank you, Dr. Vazquez, for providing the opportunity in taking care of this patient. Jordy Freeman MD cc: [phone] TT: 09/25/2016 09:59:30 Confirmation # [id number] Dictation # [id number] mn
[2016-09-25 10:04] LABS: BASO # 0.01 K/mm3 (0.0-2.0); BASO % 0.1 % (0.0-3.0); EOS # 0.1 (0.0-0.7); EOS % 1.7 % (1.5-5.0); GRAN # 4.75 (1.4-6.5); GRAN % 68.9 % (50.0-68.0); HEMATOCRIT 34.2 % (42.0-52.0); LYMPH # 1.4 (1.2-3.4); LYMPH % 19.6 % (22.0-35.0); MEAN CELL VOLUME 85.9 fL (80.0-105.0); MEAN CORPUSCULAR HEMOGLOBIN 29.9 pg (25.0-35.0); MEAN CORPUSCULAR HGB CONC 34.8 g/dl (31.0-37.0); MONO # 0.7 (0.1-0.6); MONO % 9.7 % (1.0-6.0); RED CELL DISTRIBUTION WIDTH 14.7 % (11.5-14.5); WHITE BLOOD COUNT 6.9 10^3/ul (4.5-11.0)
[2016-09-25 10:46] LABS: PLATELET COUNT 6 10^3/uL (120.0-450.0)
[2016-09-25 11:36] LABS: INR 1.07 (0.93-1.08); PARTIAL THROMBOPLASTIN TIME 32.9 Seconds (23.7-30.8)
[2016-09-25 11:56] LABS: FIBRINOGEN 454.9 mg/dL (187-400)
[2016-09-25 13:25] LABS: ADD MANUAL DIFF? NO
[2016-09-25 13:41] LABS: BASO # 0.01 K/mm3 (0.0-2.0); BASO % 0.2 % (0.0-3.0); EOS # 0.1 (0.0-0.7); EOS % 1.1 % (1.5-5.0); GRAN # 4.18 (1.4-6.5); GRAN % 64.9 % (50.0-68.0); HEMATOCRIT 35.3 % (42.0-52.0); LYMPH # 1.5 (1.2-3.4); LYMPH % 23.9 % (22.0-35.0); MEAN CELL VOLUME 85.7 fL (80.0-105.0); MEAN CORPUSCULAR HEMOGLOBIN 29.6 pg (25.0-35.0); MEAN CORPUSCULAR HGB CONC 34.6 g/dl (31.0-37.0); MEAN PLATELET VOLUME 10.7 fl (7.0-11.0); MONO # 0.6 (0.1-0.6); MONO % 9.9 % (1.0-6.0); PLATELET COUNT 65 10^3/uL (120.0-450.0); RED CELL DISTRIBUTION WIDTH 14.9 % (11.5-14.5); WHITE BLOOD COUNT 6.4 10^3/ul (4.5-11.0)
[2016-09-25] MEDS ORDERED: Bacitracin 500 Units/gm Oint Foilpak UD ONE (14:37)
[2016-09-25 15:36] LABS: ADD MANUAL DIFF? NO
[2016-09-25 15:44] LABS: BASO # 0.01 K/mm3 (0.0-2.0); BASO % 0.1 % (0.0-3.0); EOS # 0.2 (0.0-0.7); EOS % 2.3 % (1.5-5.0); GRAN % 59.1 % (50.0-68.0); HEMATOCRIT 35.2 % (42.0-52.0); LYMPH # 1.8 (1.2-3.4); LYMPH % 25.6 % (22.0-35.0); MEAN CELL VOLUME 84.6 fL (80.0-105.0); MEAN CORPUSCULAR HEMOGLOBIN 29.3 pg (25.0-35.0); MEAN CORPUSCULAR HGB CONC 34.7 g/dl (31.0-37.0); MEAN PLATELET VOLUME 10.9 fl (7.0-11.0); MONO # 0.9 (0.1-0.6); MONO % 12.9 % (1.0-6.0); PLATELET COUNT 78 10^3/uL (120.0-450.0); RED CELL DISTRIBUTION WIDTH 14.8 % (11.5-14.5)
--- NOTE | 2016-09-25 17:38 | CARD ---
APPROVED REPORT Procedure(s) performed: Left Heart Catheterization PTCA with Stenting of proximal to Mid LAD with TANYA HISTORY The patient is a 80 year-old male with a history of : most recent EF: 54%. (EF Method: RADIONUCLIDE), coronary artery disease, previous diagnostic cath, previous PCI (The PCI date was 05/18/2007), hypertension , dyslipidemia , Hx of Non obst CAD, admitted with ACS. INDICATION The indication(s) include : unstable angina . CASE TECHNIQUE The patient was brought urgently to the Cardiac Catheterization Laboratory in a fasting state and was prepped and draped in a sterile manner. The left wrist was infiltrated with 2% Lidocaine subcutaneous anesthesia. A 6 Fr Glidesheath (Radial) sheath was inserted into the left radial artery without difficulty. Coronary angiography was performed using coronary diagnostic catheters. The left coronary system was accessed and visualized with a Diagnostic ,5 Fr JL 3.5 catheter. The right coronary system was accessed and visualized with a 5 Fr JR 3.5 catheter. The left ventricle was accessed and visualized with a 5 Fr Pigtail 145 (Angled) catheter. Left ventricular/Aortic Valve gradient assessed on pullback. Left ventriculogram was performed in PICHARDO projection. Closure device was deployed with a Fr TR Band (Large) without any complications. The patient tolerated the procedure well and there were no complications associated with the procedure. Vessel Analysis The patient's coronary anatomy is co-dominant. The left main coronary artery is a large size vessel with diffuse calcification noted throughout this vessel and without significant stenosis. The left main bifurcates to the left anterior descending and circumflex. The left anterior descending artery is a medium size vessel with diffuse calcification noted throughout this vessel and with significant stenosis. There is a 90% stenosis in the proximal to Mid segment. at take off D1 The first diagonal branch is a small size vessel with diffuse calcification noted throughout this vessel and without significant stenosis. The second diagonal branch is a small size vessel with diffuse calcification noted throughout this vessel and without significant stenosis. The circumflex artery is a large size vessel with diffuse calcification noted throughout this vessel and without significant stenosis. The first obtuse marginal branch is a medium size vessel with diffuse calcification noted throughout this vessel and without significant stenosis. The second obtuse marginal branch is a medium size vessel with diffuse calcification noted throughout this vessel and without significant stenosis. The third obtuse marginal branch is a medium size vessel with diffuse calcification noted throughout this vessel and without significant stenosis. The left posterior descending artery is a medium size vessel with diffuse calcification noted throughout this vessel and without significant stenosis. The right coronary artery is a large size vessel with intimal irregularities and without significant stenosis. The right posterior descending artery is a medium size vessel with intimal irregularities and without significant stenosis. Left Ventricle The left ventricle is normal in size with normal contractility. There was no cardiomyopathy. The left ventricular ejection fraction is estimated to be 55-60%. The left ventricular end diastolic pressure is 15 mmHg. on pul back peak to Peak 20 mm gradient across Ao valve C/w mild . PCI Technique Lesion Anticoagulation was achieved with Heparin. Percutaneous coronary intervention was performed on the proximal to Mid left anterior descending artery segment. The lesion stenosis prior to intervention was 90% with ADONIS 2 flow. A 6 Fr XB 3.5 Guide Catheter was used to engage the ostium. BALLOON DILATION A Balloon catheter 2.5 x 10 mm Sprinter RX was inserted and inflated up to 10.00atm for 30seconds. STENT DEPLOYMENT A drug-eluting stent 2.75 x 12 mm Resolute TANYA was inserted and inflated up to 12.00atm for 18seconds. POST STENT DEPLOYMENT BALLOON DILATION A Balloon catheter 3.0 x 9 mm Sprinter NC was inserted and inflated up to 14.00atm for 15seconds. Final angiography reveals 0 % stenosis with ADONIS 3 flow. Conclusion Single Vessel Critical Proximal to Mid LAD 90% stenosis. Preserved LV Fx. EF-55-605, EDP-15 mmof Hg. Successful PTCA of LAD with TANYA through Left radial, done Recommendations Daily ASA with Plavix for at least one year Aggressive Medical TherapyCardiac Risk Reduction Program Weight Loss Reduction Program CC;' DRs. Vazquez/ [place].
[2016-09-25 18:35] LABS: ADD MANUAL DIFF? NO
[2016-09-25 18:37] LABS: BASO # 0.01 K/mm3 (0.0-2.0); BASO % 0.1 % (0.0-3.0); EOS # 0.2 (0.0-0.7); EOS % 2.1 % (1.5-5.0); GRAN % 63.6 % (50.0-68.0); HEMATOCRIT 35.6 % (42.0-52.0); LYMPH # 1.8 (1.2-3.4); LYMPH % 23.7 % (22.0-35.0); MEAN CORPUSCULAR HEMOGLOBIN 29.7 pg (25.0-35.0); MEAN CORPUSCULAR HGB CONC 34.6 g/dl (31.0-37.0); MEAN PLATELET VOLUME 10.4 fl (7.0-11.0); MONO # 0.8 (0.1-0.6); MONO % 10.5 % (1.0-6.0); PLATELET COUNT 78 10^3/uL (120.0-450.0); RED CELL DISTRIBUTION WIDTH 14.8 % (11.5-14.5); WHITE BLOOD COUNT 7.6 10^3/ul (4.5-11.0)
--- NOTE | 2016-09-25 18:46 | CARD ---
APPROVED REPORT EKG Measurement Heart [id number] <Conclusion> Sinus bradycardia T wave abnormality, consider anterolateral ischemia Abnormal ECG
--- NOTE | 2016-09-25 19:36 | PN ---
DATE: 09/25/2016 The patient is a 80-year-old black male who was admitted with epigastric discomfort. He was admitted in ICU, has been on heparin. Underwent cardiac catheterization this morning, shows 90% LAD, had chris g-eluting stent placed, doing well. PHYSICAL EXAMINATION: GENERAL: He is awake and alert, communicative. VITAL SIGNS: He is afebrile, pulse 60, respirations 18, blood pressure /91. LUNGS: Bilateral fair airflow, no rhonchi or crackle. HEART: S1, S2 audible. No murmur. ABDOMEN: Soft, nontender, no rebound, no guarding. NEUROLOGIC: The patient is awake and alert, communicative. LABORATORY EXAMINATION: WBCs 7.6, hemoglobin 12.3, hematocrit 35.6, platelets of 78. Chemistry: So dium 137, potassium 4.1, chloride 102, CO2 28, BUN 12, creatinine 0.8, blood sugar of 102. ASSESSMENT: 1. Coronary artery disease, status post angioplasty of left anterior descending. 2. Postprocedure thrombocytopenia, could be heparin-induced 3. Hypertension. 4. Hyperlipidemia. 5. Peptic ulcer disease. PLAN: We will follow up CBC in a.m. The patient has been started on aspirin. He is on Flomax, ator vastatin, metoprolol and Plavix and we will follow up his electrolytes and CBC in a.m. If he remains stable, we will discharge plan for morning. Luz Elena Vazquez MD cc: [phone] TT: 09/25/2016 19:35:49 Confirmation # [id number] Dictation # [id number] en
[2016-09-25] MEDS: guaiFENesin 100 mg/5 ml Syrup UD PO PRN (21:44)
[2016-09-26] MEDS: Pantoprazole 40 mg EC Tab PO SCH (06:11)
[2016-09-26 06:27] LABS: ADD MANUAL DIFF? NO
[2016-09-26 06:37] LABS: BASO # 0.01 K/mm3 (0.0-2.0); BASO % 0.1 % (0.0-3.0); EOS # 0.1 (0.0-0.7); EOS % 1.6 % (1.5-5.0); GRAN # 4.73 (1.4-6.5); GRAN % 67.6 % (50.0-68.0); HEMATOCRIT 37.7 % (42.0-52.0); LYMPH # 1.5 (1.2-3.4); LYMPH % 20.7 % (22.0-35.0); MEAN CELL VOLUME 85.3 fL (80.0-105.0); MEAN CORPUSCULAR HEMOGLOBIN 29.9 pg (25.0-35.0); MEAN PLATELET VOLUME 11.4 fl (7.0-11.0); MONO # 0.7 (0.1-0.6); PLATELET COUNT 97 10^3/uL (120.0-450.0); RED CELL DISTRIBUTION WIDTH 14.7 % (11.5-14.5)
[2016-09-26 07:07] LABS: BLOOD UREA NITROGEN 11 mg/dL (7-21); CALCIUM 8.9 mg/dL (8.4-10.5); CARBON DIOXIDE 28 mmol/L (21-33); CHLORIDE 104 mmol/L (98-107); GFR AFRICAN-AMERICAN > 60; GLUCOSE,RANDOM 102 mg/dL (70-110); MAGNESIUM 1.9 mg/dL (1.7-2.2); PHOSPHOROUS 3.5 mg/dL (2.5-4.5); POTASSIUM 3.5 mmol/L (3.6-5.0); SODIUM 140 mmol/L (132-148)
[2016-09-26] MEDS: POLYETHYLENE GLYCOL 3350 17 GM/Dose PACKET PO SCH (09:34)
--- NOTE | 2016-09-26 12:11 | CARD ---
APPROVED REPORT EKG Measurement Heart [id number] <Conclusion> Normal sinus rhythm ST & T wave abnormality, consider anterolateral ischemia Abnormal ECG
[2016-09-26] MEDS ORDERED: Potassium Chloride 20 mEq ER Tab PO ONE (14:21)
--- NOTE | 2016-09-26 14:47 | PN ---
DATE: 09/26/2016 REASON FOR CONSULTATION AND FOLLOWUP: Acute coronary syndrome, status post PTCA of LAD, transient th rombocytopenia. BRIEF CLINICAL HISTORY: This is a 80-year-old male with past medical history significant for benign prostatic hypertrophy, hypertension, having chest pain ____ unstable angina; history of cardiac cecelia terization in 04/2007, normal coronaries. Recent stress test was abnormal, so patient underwent card iac catheterization subsequently and a stent, drug-eluting, placed in the proximal to mid LAD. Posto p, found to be thrombocytopenic with repeat platelet count back to 65; but now it is 99. Denies any chest pain, shortness of breath, any palpitation. Feels a lot better. PHYSICAL EXAMINATION: VITAL SIGNS: Temperature afebrile, heart rate 63, blood pressure 154/110. HEENT: PERRLA. Extraocular muscles intact. NECK: Supple. No carotid bruits. No thyromegaly. CHEST: Clear to auscultation. HEART: S1, S2 regular. ABDOMEN: Soft. EXTREMITIES: Clubbing and cyanosis negative. Earlier blood pressure of 116/68. LABORATORY DATA: WBC 7, hemoglobin 13.2, hematocrit 37.7, platelet count 97. Chemistry shows sodium 140, potassium 3.5, chloride 104, carbon dioxide 28, anion gap of 12, BUN 11, creatinine 0.8. IMPRESSION: Acute coronary syndrome, unstable angina, status post primary angioplasty of left anteri or descending, mid, with a drug-eluting stent; hypertension, hyperlipidemia; significant thrombocytop enia, post percutaneous coronary intervention, possibly secondary to Integrilin. Later on, the plat elet bounce back to 97. Baseline, the patient is 135. Manual platelet count 110. RECOMMENDATION: Continue aspirin, continue atorvastatin, continue metoprolol 12.5. Continue Plavix. Follow up blood workup in the morning. Possible discharge in the a.m. Discussed with the patient' s son also, Javier Song Will follow with you. Thank you, Dr. Vazquez, for providing the opportunity in taking care of this patient. Ambulate and o ut of bed to chair, and out of telemetry to the medical floor. Repeat the blood workup in the [facility] Jordy Freeman MD cc: [phone] TT: 09/26/2016 14:46:20 Confirmation # [id number] Dictation # [id number] mn
[2016-09-26] MEDS: guaiFENesin 100 mg/5 ml Syrup UD PO PRN (21:25)
--- NOTE | 2016-09-26 22:50 | DS ---
The patient is a 79-year-old, seen and examined, lying in bed, seems to be comfortable. No chest herminio n, no shortness of breath. PHYSICAL EXAMINATION: VITAL SIGNS: He is afebrile, pulse 62, respirations 22, blood pressure 150/65. LUNGS: Bilateral good airflow, no rhonchi or crackle. HEART: S1, S2 audible. ABDOMEN: Soft, nontender, no rebound, no guarding. NEUROLOGIC: The patient is awake and alert, communicative. LABORATORY EXAM: WBC is 7.0, hemoglobin 13, hematocrit 37, platelet of 97. Chemistry: Sodium 140, potassium 3.5, chloride 104, CO2 of 28, BUN 11, creatinine 0.8, and blood sugar of 102. ASSESSMENT AND PLAN: 1. Status post chest pain, status post cardiac catheterization and left anterior descending angiopla sty. 2. Hypertension. 3. Hyperlipidemia. 4. Benign prostatic hypertrophy. 5. Gastritis. PLAN: The patient will be transferred to telemetry. He will be encouraged to ambulate. If he remai ns stable, he can be discharged later on today. His medication has been called to . He will be receiving aspirin 81 daily, Flomax 0.4 daily, atorvastatin 20 mg daily, metoprolol succinate 25 ba y at bedtime, and also the patient to continue on Plavix 75 daily and lisinopril 10 mg daily. I will follow up the patient next week in office since he developed thrombocytopenia, post-procedure that n eeds to be followed. Luz Elena Vazquez MD cc: [phone] TT: 09/26/2016 22:50:24 james
[2016-09-27] MEDS: guaiFENesin 100 mg/5 ml Syrup UD PO PRN (01:16)
[2016-09-27] MEDS: Pantoprazole 40 mg EC Tab PO SCH (05:32)
[2016-09-27 05:38] VITALS: O2SAT 98
[2016-09-27 07:28] LABS: HEMATOCRIT 34.2 % (42.0-52.0); MEAN CELL VOLUME 85.3 fL (80.0-105.0); MEAN CORPUSCULAR HEMOGLOBIN 29.4 pg (25.0-35.0); MEAN CORPUSCULAR HGB CONC 34.5 g/dl (31.0-37.0); MEAN PLATELET VOLUME 10.7 fl (7.0-11.0); RED CELL DISTRIBUTION WIDTH 14.7 % (11.5-14.5); WHITE BLOOD COUNT 6.6 10^3/ul (4.5-11.0)
[2016-09-27 07:56] LABS: BLOOD UREA NITROGEN 16 mg/dL (7-21); CALCIUM 8.7 mg/dL (8.4-10.5); CARBON DIOXIDE 28 mmol/L (21-33); CHLORIDE 103 mmol/L (98-107); GFR AFRICAN-AMERICAN > 60; GLUCOSE,RANDOM 98 mg/dL (70-110); PHOSPHOROUS 3.9 mg/dL (2.5-4.5); SODIUM 137 mmol/L (132-148)
[2016-09-27] MEDS: POLYETHYLENE GLYCOL 3350 17 GM/Dose PACKET PO SCH (09:03)
--- NOTE | 2016-09-27 10:18 | PN ---
DATE: 09/27/2016 REASON FOR CONSULTATION AND FOLLOWUP: Acute coronary syndrome, status post PTCA of LAD, transient th rombocytopenia, improved. BRIEF CLINICAL HISTORY: This is a 80-year-old male with a past medical history significant for benig n prostatic hypertrophy, hypertension. Admitted with an acute coronary syndrome, unstable angina, st atus post emergent angioplasty of LAD with a drug-eluting stent. During the procedure, patient got I ntegrilin. Transient, patient become thrombocytopenic, but repeat count, platelets bounced back. De nies any chest pain, shortness of breath, palpitation. No evidence of any obvious bleeding noted. PHYSICAL EXAMINATION: VITAL SIGNS: Temperature afebrile, heart rate 73, blood pressure 138/75. HEENT: PERRLA. Extraocular muscles intact. NECK: Supple. No carotid bruits. No thyromegaly. CHEST: Clear to auscultation. HEART: S1, S2 regular. ABDOMEN: Soft. EXTREMITIES: Clubbing, cyanosis negative. BLOOD WORKUP: WBC 6.6, hemoglobin 11.8, hematocrit 34.2, platelet count 102, improved. Admission pl atelets were 135. Chemistry shows sodium 137, potassium 4, chloride 103, carbon dioxide 28, anion ga p of 10, BUN 16, creatinine 1.0. IMPRESSION: Acute coronary syndrome, unstable angina, status post primary angioplasty of left anteri or descending, proximal to mid, with a drug-eluting stent, transient thrombocytopenia secondary to In tegrilin bolus dose, bounced back itself, does not require any intervention, hypertension, hyperlipid emia. RECOMMENDATION: Continue aspirin. Continue Plavix. Ambulate. Continue metoprolol. Continue lisin opril. Pressure is stable. We will discontinue telemetry. Possible discharge planning. Thank you, Dr. Vazquez, for providing us the opportunity in taking care of the patient. Jordy Freeman MD cc: [phone] TT: 09/27/2016 10:18:13 Confirmation # [id number] Dictation # [id number] en
--- NOTE | 2016-09-27 12:59 | DS ---
The patient is a 80-year-old, seen and examined, doing well. No chest pain, no shortness of breath. Eating and tolerating. Ambulating with no discomfort. PHYSICAL EXAMINATION: VITAL SIGNS: He is afebrile, pulse 76, respirations 18, blood pressure 138/75. LUNGS: Bilateral good airflow. No rhonchi or crackle. HEART: S1, S2 audible. ABDOMEN: Soft, nontender, no rebound, no guarding. NEUROLOGIC: He is awake, alert, communicative. LABORATORY EXAMINATION: WBC 6.6, hemoglobin 11.8, hematocrit 34.2, platelets 102. Chemistry: Sodiu m 137, potassium 4.0, chloride 103, CO2 28, BUN 16, creatinine 1.0, blood sugar of 98. ASSESSMENT: 1. Status post angioplasty, had left anterior descending 90% and underwent drug-eluting stent. 2. Hypertension. 3. Hyperlipidemia. 4. Benign prostatic hypertrophy. PLAN: The patient is being discharged home today. He is being discharged on aspirin 81 daily, Floma x 0.4 daily. He is on atorvastatin 40 mg daily. Metoprolol has been changed to succinate 25 daily. He is on Plavix 75 daily, Protonix 40 daily, lisinopril 10 mg daily. I will follow up in office nex t week. Luz Elena Vazquez MD cc: [phone] TT: 09/27/2016 12:59:16 en
[2016-09-27 13:16] VITALS: BP 120/73; PULSE 56; RESP 18; TEMP 98
== END 2016-09-27 14:45 | disposition home or self-care (01) ==
LOC: ED 18:50 → INTOOBSV 20:33 → ERH 20:33 → CCU 09-24 01:00 → 2RSO 09-26 13:23
PROVIDERS: ADMIT Internal Medicine; ATTEND Internal Medicine
PROC: 027034Z Dilation of Coronary Artery, One Artery with Drug-eluting Intraluminal Device, Percutaneous Approach (ICD-10-PCS; principal; 2016-09-25)
PROC: 4A023N7 Measurement of Cardiac Sampling and Pressure, Left Heart, Percutaneous Approach (ICD-10-PCS; 2016-09-25)
PROC: B211YZZ Fluoroscopy of Multiple Coronary Arteries using Other Contrast (ICD-10-PCS; 2016-09-25)
PROC: B215YZZ Fluoroscopy of Left Heart using Other Contrast (ICD-10-PCS; 2016-09-25)
PROC: 3E033PZ Introduction of Platelet Inhibitor into Peripheral Vein, Percutaneous Approach (ICD-10-PCS; 2016-09-25)
DX: I24.9 Acute ischemic heart disease, unspecified (principal); I25.110 Atherosclerotic heart disease of native coronary artery with unstable angina pectoris; D69.6 Thrombocytopenia, unspecified; D64.9 Anemia, unspecified; K27.9 Peptic ulcer, site unspecified, unspecified as acute or chronic, without hemorrhage or perforation; I35.0 Nonrheumatic aortic (valve) stenosis; I08.0 Rheumatic disorders of both mitral and aortic valves; K21.9 Gastro-esophageal reflux disease without esophagitis; E78.5 Hyperlipidemia, unspecified; I10 Essential (primary) hypertension; K29.70 Gastritis, unspecified, without bleeding; Z82.49 Family history of ischemic heart disease and other diseases of the circulatory system; Z87.891 Personal history of nicotine dependence; Z98.61 Coronary angioplasty status; R40.2412 Glasgow coma scale score 13-15, at arrival to emergency department; K59.09 Other constipation; N40.1 Benign prostatic hyperplasia with lower urinary tract symptoms; R35.1 Nocturia; E87.6 Hypokalemia; M17.12 Unilateral primary osteoarthritis, left knee; M25.562 Pain in left knee; T45.525A Adverse effect of antithrombotic drugs, initial encounter
CPT/HCPCS: 36415; 71010; 80048; 80053; 80061; 82550; 83036; 83615; 83735; 84100; 84443; 84484; 85025; 85027; 85175; 85362; 85384; 85610; 85730; 86850; 86900; 87081; 88112; 93005; 93458; 96361; 96374; 96375; 96376; 99152; 99153; 99285; C1725; C1769; C1874; C1887; C9113; C9600; G0378; J1327; J1644; J2250; J3010; J3480; J7030; J7040; Q9967

== ENCOUNTER 2017-02-18 15:03 | Emergency (ER) | payer MEDICARE, OTHER ==
[2017-02-18 15:26] VITALS: BMI 33.0
[2017-02-18 15:37] VITALS: TEMP 97.7
[2017-02-18 16:23] LABS: BASO # 0.01 K/mm3 (0.0-2.0); BASO % 0.2 % (0.0-3.0); EOS # 0.2 (0.0-0.7); EOS % 3.5 % (1.5-5.0); GRAN # 2.47 (1.4-6.5); GRAN % 45.9 % (50.0-68.0); HEMATOCRIT 34.1 % (42.0-52.0); LYMPH # 2.3 (1.2-3.4); LYMPH % 41.9 % (22.0-35.0); MEAN CELL VOLUME 85.9 fl (80.0-105.0); MEAN CORPUSCULAR HGB CONC 33.7 g/dl (31.0-37.0); MEAN PLATELET VOLUME 10.3 fl (7.0-11.0); MONO # 0.5 (0.1-0.6); MONO % 8.5 % (1.0-6.0); RED CELL DISTRIBUTION WIDTH 14.7 % (11.5-14.5); WHITE BLOOD COUNT 5.4 10^3/ul (4.5-11.0)
[2017-02-18 16:31] LABS: ALB/GLOB RATIO 1.2 (1.1-1.8); ALKALINE PHOSPHATASE 44 U/L (38-126); ALT/SGPT 30 U/L (7-56); AST/SGOT 37 U/L (17-59); BILIRUBIN,TOTAL 0.5 mg/dL (0.2-1.3); BLOOD UREA NITROGEN 22 mg/dL (7-21); CALCIUM 8.7 mg/dL (8.4-10.5); CARBON DIOXIDE 30 mmol/L (21-33); CHLORIDE 104 mmol/L (98-107); GFR AFRICAN-AMERICAN > 60; GLUCOSE,RANDOM 87 mg/dL (70-110); POTASSIUM 4.2 mmol/L (3.6-5.0); SODIUM 141 mmol/L (132-148); TOTAL PROTEIN 7.1 g/dL (5.8-8.3)
[2017-02-18 16:32] LABS: INR 1.05 (0.93-1.08); PARTIAL THROMBOPLASTIN TIME 26.8 Seconds (23.7-30.8)
--- NOTE | 2017-02-18 16:52 | RAD ---
HISTORY: Leg swelling COMPARISON: 09/23/2016 FINDINGS: LUNGS: The lungs are well inflated and clear. PLEURA: No significant pleural effusion identified, no pneumothorax apparent. CARDIOVASCULAR: 1stThe heart is normal in size. There is unfolding of aorta. OSSEOUS STRUCTURES: No significant abnormalities. VISUALIZED UPPER ABDOMEN: Normal. OTHER FINDINGS: None. IMPRESSION: No active pulmonary disease.
--- NOTE | 2017-02-18 17:00 | ED PDOC ---
Arrival/HPI - General Chief Complaint: Lower Extremity Problem/Injury Time Seen by Provider: 02/18/17 15:44 Historian: Patient - History of Present Illness Narrative History of Present Illness (Text): 02/18/17 16:57 81 yo M w/ pmh of HTN, high cholesterol, reports mild pain only when walking to the L lower leg and swelling both legs x 1 month. Patient states that he was in [place] for 1.5 months, and just returned today. He went to see his pmd, who advised him to go to the ER. Otherwise: (-) trauma, (-) chest pain, (-) dyspnea, (-) fever, (-) cough, (-) hemoptysis, (-) prior thromboembolic disease , (+) prolonged immobility or travel, (-) CHF, (-) known malignancy. PMD George Past Medical History - Provider Review Nursing Documentation Reviewed: Yes - Infectious Disease Hx of Infectious Diseases: None - Tetanus Immunization Tetanus Immunization: Unknown - Cardiac Hx Hypertension: Yes Other/Comment: admitted 05/01/16 for chest pain - Pulmonary Hx Respiratory Disorders: No - Neurological Hx Neurological Disorder: No - HEENT Hx HEENT Disorder: No - Renal Hx Renal Disorder: No - Endocrine/Metabolic Hx Endocrine Disorders: No - Hematological/Oncological Hx Blood Disorders: No - Integumentary Hx Dermatological Disorder: No - Musculoskeletal/Rheumatological Hx Falls: No - Gastrointestinal Hx Gastrointestinal Disorders: No Hx Gastroesophageal Reflux: Yes - Genitourinary/Gynecological Hx Prostate Problems: Yes - Psychiatric Hx Substance Use: No - Past Surgical History Past Surgical History: No Previous - Surgical History Other/Comment: abd. surgery - Anesthesia Hx Anesthesia Reactions: No Hx Malignant Hyperthermia: No - Suicidal Assessment Feels Threatened In Home Enviroment: No Family/Social History - Physician Review Nursing Documentation Reviewed: Yes Family/Social History: No Known Family HX Smoking Status: Never Smoked Hx Alcohol Use: No Hx Substance Use: No Allergies/Home Meds Allergies/Adverse Reactions: Allergies No Known Allergies Allergy (Verified 09/23/16 19:07) Home Medications: Home Meds Medication Instructions Recorded Confirmed Lisinopril/Hydrochlorothiazide 1 each PO DAILY 05/01/16 02/18/17 [Lisinopril-Hctz 20-12.5 mg Tab] Tamsulosin [Flomax] 0.4 mg PO DAILY 05/01/16 02/18/17 Metoprolol Succinate [Toprol XL] 25 mg PO DAILY 09/24/16 02/18/17 Atorvastatin [Lipitor] 20 mg PO HS 02/18/17 02/18/17 Clopidogrel [Plavix] 75 mg PO DAILY 02/18/17 02/18/17 Review of Systems - Review of Systems Constitutional: Normal. absent: Fatigue, Weight Change, Fevers Respiratory: Normal. absent: SOB, Cough, Sputum Cardiovascular: Normal, Edema. absent: Chest Pain, Palpitations Musculoskeletal: Normal, Arthralgias. absent: Back Pain, Neck Pain, Joint Swelling Skin: Normal. absent: Rash, Pruritis, Skin Lesions Physical Exam - Physical Exam Narrative Physical Exam (Text): 02/18/17 17:01 GENERAL APPEARANCE: Patient is awake, alert, oriented x 3, in no acute distress. SKIN: Warm, dry; (-) cyanosis; (-) rash. HEAD: (-) scalp swelling, (-) tenderness. EYES: (-) conjunctival pallor, (-) scleral icterus. ENMT: Pharynx: (-) erythema; airway patent: (-) stridor; mucous membranes moist. NECK: (-) tenderness, (-) stiffness, (-) lymphadenopathy, (-) thyromegaly. CHEST AND RESPIRATORY: (-) rales, (-) rhonchi, (-) wheezes, (-) pleural friction rub; breath sounds equal bilaterally. HEART AND CARDIOVASCULAR: (-) irregularity; (-) murmur, (-) gallop, (-) pericardial rub. ABDOMEN AND GI: Soft; (-) tenderness, (-) guarding, (-) rebound, (-) palpable masses, (-) CVA tenderness. EXTREMITIES: (-) tenderness, (+) 1+ edema to b/l LE, (-) palpable cord. Distal pulses: 2+. NEURO AND PSYCH: Mental status as above. Cranial nerves grossly intact; strength symmetric. Vital Signs Temp Pulse Resp BP Pulse Ox 02/18/17 15:04 97.7 F 58 L 18 154/69 H 98 Medical Decision Making ED Course and Treatment: 02/18/17 17:00 81 yo M w/ pmh of HTN, high cholesterol, reports mild pain only when walking to the L lower leg and swelling both legs x 1 month. DDx : r/o DVT, CHF, dependent edema Plan: -- Labs -- IV -- Urinalysis -- EKG -- CXR -- Reassess and disposition -- b/l Doppler US LE 02/18/17 17:01 EKG: SB at 52 bpm, (-) acute ST changes, as read by [facility]. CXR : NAD, as read by [facility] US doppler : (-) of DVT to b/l LE, as per US tech. On reevaluation, patient is resting in bed comfortably in no acute distress, reports no CP, no SOB. Lab results reviewed : bnp (-), rest of the labs are wnl. US shows no DVT. Results d/w the patient in great detail. Case d/w Dr. Vazquez agree with outpt f/u in her office, request a Rx to be given to the patient for lasix 15 mg to take every other day for 1 week and to f/u in her office. Otherwise advised to follow up with primary care physician in 1-2 days without fail. Advised to take medication as instructed. Elevate both legs, use compression socks especially during long travel. Return to the emergency room at any time for any new or worsening symptoms. Patient states he fully agrees with and understands discharge instructions. States that he agrees with the plan and disposition. Verbalized and repeated discharge instructions and plan. I have given the patient opportunity to ask any additional questions. - Lab Interpretations Lab Results: 02/18/17 16:05 02/18/17 16:05 Lab Results 02/18/17 16:05: Sodium 141, Potassium 4.2, Chloride 104, Carbon Dioxide 30, Anion Gap 11, BUN 22 H, Creatinine 1.0, Est GFR ( Amer) > 60, Est GFR ( Non-Af Amer) > 60, Random Glucose 87, Calcium 8.7, Total Bilirubin 0.5, AST 37, ALT 30, Alkaline Phosphatase 44, NT-Pro-B Natriuret Pep 222, Total Protein 7.1, Albumin 3.8, Globulin 3.3, Albumin/Globulin Ratio 1.2 02/18/17 16:05: PT 11.3, INR 1.05, APTT 26.8 02/18/17 16:05: WBC 5.4, RBC 3.97, Hgb 11.5 L, Hct 34.1 L, MCV 85.9, MCH 29.0, MCHC 33.7, RDW 14.7 H, Plt Count 106 L, MPV 10.3, Gran % 45.9 L, Lymph % (Auto) 41.9 H, Haskell % (Auto) 8.5 H, Eos % (Auto) 3.5, Baso % (Auto) 0.2, Gran # 2.47, Lymph # 2.3, Haskell # 0.5, Eos # 0.2, Baso # 0.01 - RAD Interpretation Radiology Orders: 02/18/17 15:57 CHEST PORTABLE [RAD] Stat DUPLEX LOWER EXTRM VEIN BILAT [US] Stat - PA / TRACKWALKER / Resident Statement MD/DO has reviewed & agrees with the documentation as recorded. Disposition/Present on Arrival - Present on Arrival Any Indicators Present on Arrival: No History of DVT/PE: No History of Uncontrolled Diabetes: No Urinary Catheter: No History of Decub. Ulcer: No History Surgical Site Infection Following: None - Disposition Have Diagnosis and Disposition been Completed?: Yes Diagnosis: Leg edema Disposition: HOME/ ROUTINE Disposition Time: 17:00 Patient Plan: Discharge Condition: STABLE Discharge Instructions (ExitCare): Leg Edema (ED) Print Language: UZBEK Additional Instructions: Thank you for letting us take care of you today. You were treated for leg edema. The emergency medical care you received today was directed at your acute symptoms. If you were prescribed any medication, please fill it and take as directed - take lasix every other day for 1 week. Elevate legs, wear compression socks. It may take several days for your symptoms to resolve. Return to the Emergency Department if your symptoms worsen, do not improve, or if you have any other problems. Please contact your doctor in 2 days for re-evaluation and follow up. Bring any paperwork you were given at discharge with you along with any medications you are taking to your follow up visit. Our treatment cannot replace ongoing medical care by a primary care provider (PCP) outside of the emergency department. [facility]. If you had an X-Ray : A Radiologist will review the ED reading if any change in treatment is needed we will contact you. Prescriptions: Furosemide [Lasix] 20 mg PO MWF #4 tab Referrals: Luz Elena Vazquez MD [Primary Care Provider] - Follow up with primary Forms: Mosoro (Malagasy)
[2017-02-18 17:28] LABS: URINE BILIRUBIN NEGATIVE (NEGATIVE); URINE BLOOD TRACE-INTACT (NEGATIVE); URINE GLUCOSE (UA) NEGATIVE (NEGATIVE); URINE KETONE NEGATIVE (NEGATIVE); URINE LEUKOCYTE ESTERASE NEGATIVE Leu/uL (NEGATIVE); URINE PROTEIN NEGATIVE mg/dL (<30 mg/dL); URINE UROBILINOGEN 0.2 E.U./dL (<1 E.U./dL)
[2017-02-18 17:29] LABS: URINE APPEARANCE CLEAR (CLEAR); URINE COLOR YELLOW (YELLOW)
[2017-02-18 17:37] LABS: URINE BACTERIA FEW (NEG); URINE EPITHELIAL CELLS 0 - 2 /hpf (0-5); URINE RBC 0 - 2 /hpf (0-2); URINE WBC 0 - 2 /hpf (0-6)
[2017-02-18 17:47] VITALS: BP 145/69; PULSE 65; RESP 16; O2SAT 100
--- NOTE | 2017-02-18 18:04 | US ---
HISTORY: Leg pain and swelling. Evaluate for DVT PHYSICIAN(S): Karan Pérez MD. TECHNIQUE: Duplex sonography and color-flow Doppler with graded compression were used to evaluate the deep venous systems of both lower extremities. FINDINGS: The visualized deep venous systems of both lower extremities are sonographically normal and compressible. Normal wave forms and augmentation are seen. There is no sonographic evidence for deep venous thrombosis in the visualized segments of both lower extremities. IMPRESSION: No sonographic evidence for deep venous thrombosis in the visualized segments of both lower extremities.
--- NOTE | 2017-02-19 11:42 | CARD ---
APPROVED REPORT EKG Measurement Heart [id number] <Conclusion> Sinus bradycardia T wave abnormality, consider lateral ischemia Abnormal ECG
== END 2017-02-18 17:48 | disposition home or self-care (01) ==
LOC: ED 15:03
DX: R60.0 Localized edema (principal); I10 Essential (primary) hypertension; E78.00 Pure hypercholesterolemia, unspecified

== ENCOUNTER 2017-02-20 23:15 | Emergency (ER) | payer MEDICARE, OTHER ==
[2017-02-20 23:35] VITALS: BMI 32.3
[2017-02-20 23:52] VITALS: BP 150/80; PULSE 74; RESP 18; TEMP 98.1; O2SAT 99
--- NOTE | 2017-02-21 00:12 | ED PDOC ---
Arrival/HPI - General Chief Complaint: Lower Extremity Problem/Injury Time Seen by Provider: 02/21/17 00:04 - History of Present Illness Narrative History of Present Illness (Text): 02/21/17 00:07 81-year-old male presents emergency Department with left lower extremity pain or swelling. Patient denies any Chest pain, shortness of breath, dyspnea on exertion. Patient's previous, records reviewed, he was seen on 02/18/17, had neg. BNP and neg. US for DVT. Pt was dc'd home on lasix every other day per Dr. Vazquez's request. . Pt requesting a L. hip xray. Past Medical History - Provider Review Nursing Documentation Reviewed: Yes - Infectious Disease Hx of Infectious Diseases: None - Tetanus Immunization Tetanus Immunization: Unknown - Cardiac Hx Hypertension: Yes Other/Comment: admitted 05/01/16 for chest pain - Pulmonary Hx Respiratory Disorders: No - Neurological Hx Neurological Disorder: No - HEENT Hx HEENT Disorder: No - Renal Hx Renal Disorder: No - Endocrine/Metabolic Hx Endocrine Disorders: No - Hematological/Oncological Hx Blood Disorders: No - Integumentary Hx Dermatological Disorder: No - Musculoskeletal/Rheumatological Hx Falls: No - Gastrointestinal Hx Gastrointestinal Disorders: No Hx Gastroesophageal Reflux: Yes - Genitourinary/Gynecological Hx Prostate Problems: Yes - Psychiatric Hx Emotional Abuse: No Hx Physical Abuse: No Hx Substance Use: No - Past Surgical History Past Surgical History: No Previous - Surgical History Other/Comment: abd. surgery - Anesthesia Hx Anesthesia: Yes Hx Anesthesia Reactions: No Hx Malignant Hyperthermia: No - Suicidal Assessment Feels Threatened In Home Enviroment: No Family/Social History - Physician Review Nursing Documentation Reviewed: Yes Family/Social History: Unknown Family HX Smoking Status: Never Smoked Hx Alcohol Use: No Hx Substance Use: No Allergies/Home Meds Allergies/Adverse Reactions: Allergies No Known Allergies Allergy (Verified 09/23/16 19:07) Home Medications: Home Meds Medication Instructions Recorded Confirmed Lisinopril/Hydrochlorothiazide 1 each PO DAILY 05/01/16 02/20/17 [Lisinopril-Hctz 20-12.5 mg Tab] Tamsulosin [Flomax] 0.4 mg PO DAILY 05/01/16 02/20/17 Metoprolol Succinate [Toprol XL] 25 mg PO DAILY 09/24/16 02/20/17 Atorvastatin [Lipitor] 20 mg PO HS 02/18/17 02/20/17 Clopidogrel [Plavix] 75 mg PO DAILY 02/18/17 02/20/17 Physical Exam - Physical Exam Narrative Physical Exam (Text): 02/21/17 00:12 - Review of Systems Constitutional: Normal. absent: Fatigue, Weight Change, Fevers Eyes: Normal ENT: denies sore throat, denies tristhmus Respiratory: Normal. absent: SOB, Cough, Sputum Cardiovascular: absent: Chest Pain, Palpitations, Syncope Gastrointestinal: Normal. absent: Abdominal Pain, Diarrhea, Nausea, Vomiting Genitourinary: Normal. absent: Dysuria, Frequency, Hematuria Musculoskeletal: Hip pain. absent: Back Pain, Neck Pain Skin: no rashes, no erythema Neurological: absent: Focal Weakness Endocrine: Normal Hemo/Lymphatic: Normal Psychiatric: No suicidal or homicidal ideations Physical exam Patient appears age appropriate in no distress, speaking full sentences without difficulty - Systems Exam Head: Present: Atraumatic, Normocephalic Pupils: Present: PERRL Extroacular Muscles: Present: EOMI Conjunctiva: Present: Normal Mouth: Present: Moist Mucous Membranes Neck: Present: Normal Range of Motion. No: MIDLINE TENDERNESS, Paraspinal Tenderness Respiratory/Chest: Present: Clear to Auscultation, Good Air Exchange. No: Respiratory Distress, Accessory Muscle Use, Tachypneic Cardiovascular: Present: Regular Rate and Rhythm, Normal S1, S2, Peripheal Pulses Present. No: Murmurs Abdomen: Present: Normal Bowel Sounds. No: Tenderness, Distention, Peritoneal Signs, Rebound, Guarding Back: Present: Normal Inspection. No: Midline Tenderness, Paraspinal Tenderness Upper Extremity: Present: Normal Inspection. No: Cyanosis, Edema Lower Extremity: Present: Normal Inspection. LLE with mild trace non-pitting edema. hip with full active and passive ROM, 5/5 strength. knee and ankle unremarkable. No: Edema Neurological: Present: GCS=15, Speech Normal, cranial nerves II through XII fully intact with no cerebellar abnormality, neurosensory fully intact. No focal neurological deficits. Skin: Present: Warm, Dry, Normal Color. No: Rashes Lymphatic: Present: OX3, NI, NC Psychiatric: Present: Alert, Oriented x 3, Normal Insight, Normal Concentration Vital Signs Reviewed: Yes Vital Signs Temp Pulse Resp BP Pulse Ox 02/20/17 23:51 98.1 F 74 18 150/80 99 Temperature: Afebrile Blood Pressure: Normal Pulse: Regular Respiratory Rate: Normal Appearance: Positive for: Well-Appearing Pain Distress: None Mental Status: Positive for: Alert and Oriented X 3 Medical Decision Making ED Course and Treatment: 02/21/17 01:15 On reevaluation, patient ambulating with steady gait. 02/21/17 02:29 xray shows no acute fx or dislocation pt informed to f/u with PMD for further w/u and ortho referral had an extensive d/w pt that although xrays are negative for any acute bony abnormality, it is still very important to fu with pmd and ortho specialist for further w/u and testing such as MRI to r/o any ligamentous/tendenous/meniscal injury. Pt verbalized full understanding of above discussion. Pt states he understands to return to the ER right away for new or worsening symptoms or for inability to f/u with PMD or specialist as instructed. Patient states that he fully agrees with and understands discharge instructions. States that he agrees with the plan and disposition. Verbalized and repeated discharge instructions and plan. I have given the patient opportunity to ask any additional questions. - RAD Interpretation Radiology Orders: 02/21/17 00:10 Hip Left [HIP MIN 2V W/ PELVIS LT] [RAD] Stat - Medication Orders Current Medication Orders: Discontinued Medications Ketorolac Tromethamine (Toradol) 30 mg IM STAT STA Stop: 02/21/17 00:11 Last Admin: 02/21/17 00:20 Dose: 30 mg MAR Pain Assessment Document 02/21/17 00:20 RD (Rec: 02/21/17 00:20 [id number]) Pain Reassessment Is this a pain reassessment? No Sleep Is patient sleeping during reassessment? No Presence of Pain Presence of Pain Yes IM Administration Charges Document 02/21/17 00:20 RD (Rec: 02/21/17 00:20 [id number]) Injection Site MAR Injection Site Left Deltoid Charges for Administration # of IM Administrations 1 Disposition/Present on Arrival - Present on Arrival Any Indicators Present on Arrival: No History of DVT/PE: No History of Uncontrolled Diabetes: No Urinary Catheter: No History of Decub. Ulcer: No History Surgical Site Infection Following: None - Disposition Have Diagnosis and Disposition been Completed?: Yes Diagnosis: Hip pain Disposition: HOME/ ROUTINE Disposition Time: 02:30 Patient Plan: Discharge Condition: GOOD Discharge Instructions (ExitCare): Arthralgia (ED), Hip Pain (ED) Additional Instructions: PLEASE RETURN TO THE EMERGENCY DEPARTMENT FOR NEW OR WORSENING SYMPTOMS. RETURN RIGHT AWAY IF YOU CANNOT FOLLOW UP WITH YOUR PRIMARY CARE DOCTOR, CLINIC, OR SPECIALIST IN 1-2 DAYS. Please take [id number] Motrin or Tylenol for pain Referrals: Adam Vidal, [Staff Provider] - Follow up with primary Forms: Dragonplay (Greenlandic)
--- NOTE | 2017-02-21 08:54 | RAD ---
PROCEDURE: Left Hip X-ray Radiographs. HISTORY: pain COMPARISON: None. FINDINGS: BONES: The pelvic ring is intact. There is no acute displaced fracture or bone destruction. There is diffuse bone demineralization. 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 SOFT TISSUES: Normal. OTHER FINDINGS: None. IMPRESSION: No acute displaced fracture or dislocation.Please note occult fractures cannot be excluded on plain radiographs. If there is a persistent clinical concern, an MRI of the hip may be performed for further evaluation. Mild degenerative osteoarthrosis in the hip joints with
== END 2017-02-21 02:50 | disposition home or self-care (01) ==
LOC: ED 23:15
DX: M25.552 Pain in left hip (principal); I10 Essential (primary) hypertension
CPT/HCPCS: 73502; 96372; 99283; J1885

== ENCOUNTER 2017-03-08 15:18 | Emergency (ER) | payer MEDICARE ==
[2017-03-08 15:19] VITALS: BMI 32.3
--- NOTE | 2017-03-08 15:20 | ED PDOC ---
Arrival/HPI - General Time Seen by Provider: 03/08/17 15:19 Historian: Patient - History of Present Illness Narrative History of Present Illness (Text): 03/08/17 15:20 81 y/o male, pmh including htn/hyperlipidemia/cad/bph, nkda, taking plavix, last tetanus under 5 years ago, c/o tongue bleeding from the accidental biting x 2 hours. Pt. stated that he was eating salmon and rice, accidentally bite the tongue mildly, no fever or chills, no chest pain or shortness of breath, no palpitation, no difficulty talking or chewing, no other medical or psychological complaints. Past Medical History - Provider Review Nursing Documentation Reviewed: Yes - Infectious Disease Hx of Infectious Diseases: None - Tetanus Immunization Tetanus Immunization: Unknown - Cardiac Hx Hypertension: Yes Other/Comment: admitted 05/01/16 for chest pain - Pulmonary Hx Respiratory Disorders: No - Neurological Hx Neurological Disorder: No - HEENT Hx HEENT Disorder: No - Renal Hx Renal Disorder: No - Endocrine/Metabolic Hx Endocrine Disorders: No - Hematological/Oncological Hx Blood Disorders: No - Integumentary Hx Dermatological Disorder: No - Musculoskeletal/Rheumatological Hx Falls: No - Gastrointestinal Hx Gastrointestinal Disorders: No Hx Gastroesophageal Reflux: Yes - Genitourinary/Gynecological Hx Prostate Problems: Yes - Psychiatric Hx Emotional Abuse: No Hx Physical Abuse: No Hx Substance Use: No - Past Surgical History Past Surgical History: No Previous - Surgical History Other/Comment: abd. surgery - Anesthesia Hx Anesthesia: Yes Hx Anesthesia Reactions: No Hx Malignant Hyperthermia: No - Suicidal Assessment Feels Threatened In Home Enviroment: No Family/Social History - Physician Review Nursing Documentation Reviewed: Yes Family/Social History: Unknown Family HX Smoking Status: Never Smoked Hx Alcohol Use: No Hx Substance Use: No Allergies/Home Meds Allergies/Adverse Reactions: Allergies No Known Allergies Allergy (Verified 09/23/16 19:07) Home Medications: Home Meds Medication Instructions Recorded Confirmed Lisinopril/Hydrochlorothiazide 1 each PO DAILY 05/01/16 03/08/17 [Lisinopril-Hctz 20-12.5 mg Tab] Tamsulosin [Flomax] 0.4 mg PO DAILY 05/01/16 03/08/17 Atorvastatin [Lipitor] 20 mg PO HS 02/18/17 03/08/17 Clopidogrel [Plavix] 75 mg PO DAILY 02/18/17 03/08/17 Aspirin [Ecotrin] 81 mg PO DAILY 03/08/17 03/08/17 Cholecalciferol (Vitamin D3) 2,000 iu PO DAILY 03/08/17 03/08/17 [Vitamin D3] Review of Systems - Review of Systems Constitutional: absent: Fatigue, Fevers Eyes: absent: Vision Changes ENT: Other (tongue bleeding. ). absent: Hearing Changes Respiratory: absent: SOB, Cough Cardiovascular: absent: Chest Pain, Palpitations Gastrointestinal: absent: Abdominal Pain, Nausea, Vomiting Skin: absent: Rash, Pruritis Neurological: absent: Headache, Dizziness Physical Exam Vital Signs Reviewed: Yes Vital Signs Temp Pulse Resp BP Pulse Ox 03/08/17 15:28 98.5 F 57 L 20 157/87 H 100 Temperature: Afebrile Blood Pressure: Hypertensive Pulse: Bradycardic Respiratory Rate: Normal Appearance: Positive for: Well-Appearing, Non-Toxic, Comfortable Pain Distress: None Mental Status: Positive for: Alert and Oriented X 3 - Systems Exam Head: Present: Atraumatic, Normocephalic Pupils: Present: PERRL Conjunctiva: Present: Normal Mouth: Present: Moist Mucous Membranes, Other (visible rt. lateral distal tip pinpoint less than 1mm diameter mildly oozing with no laceration gap. ) Pharnyx: No: ERYTHEMA, EXUDATE, TONSILS ENLARGED Neck: Present: Normal Range of Motion, Trachea Midline. No: Meningeal Signs, MIDLINE TENDERNESS, Paraspinal Tenderness, Lymphadenopathy Respiratory/Chest: Present: Clear to Auscultation, Good Air Exchange. No: Respiratory Distress, Accessory Muscle Use Cardiovascular: Present: Regular Rate and Rhythm, Normal S1, S2. No: Murmurs Abdomen: Present: Normal Bowel Sounds. No: Tenderness, Distention, Peritoneal Signs, Rebound, Guarding Back: Present: Normal Inspection Upper Extremity: Present: Normal Inspection, Normal ROM, NORMAL PULSES, Capillary Refill < 2s. No: Cyanosis, Edema, Deformity Lower Extremity: Present: Normal Inspection. No: Edema Neurological: Present: GCS=15, CN II-XII Intact, Speech Normal Skin: Present: Warm, Dry, Normal Color. No: Rashes Psychiatric: Present: Alert, Oriented x 3, Normal Insight, Normal Concentration Medical Decision Making ED Course and Treatment: 03/08/17 15:39 -gauze pressure dressing -observe and reassess 03/08/17 16:09 -I attempted to stopped the bleeding with the gauze pressure dressing with 3 attempts with no success. -the bleeding site is tiny pinpoint and wouldn't be able to be sutured. -I will try silver nitrate to single point cauterizing and reassess 03/08/17 16:25 -I use silver nitrate, cauterize the bleeding site, bleeding stopped. -I advised the patient to drink from the straw for the next 24 hours ago. -Discharge home with education on avoid chewing or biting food, only drink from straw, if bleeding happen again then use the tea bag to compress on the bleeding site, follow up with your own pmd and dental within 2 days, return to the ER for any new or worsening signs or symptoms. - Medication Orders Current Medication Orders: Discontinued Medications Silver Nitrate (Silver Nitrate Topical Stick) 1 swa TOP ONCE ONE Stop: 03/08/17 16:10 - PA / IC ENGINEER / Resident Statement MD/ has reviewed & agrees with the documentation as recorded. Disposition/Present on Arrival - Present on Arrival Any Indicators Present on Arrival: No History of DVT/PE: No History of Uncontrolled Diabetes: No Urinary Catheter: No History of Decub. Ulcer: No History Surgical Site Infection Following: None - Disposition Have Diagnosis and Disposition been Completed?: Yes Diagnosis: Hemorrhage of tongue Disposition: HOME/ ROUTINE Disposition Time: 15:40 Patient Plan: Discharge Patient Problems: Current Active Problems Problem Status Onset Hemorrhage of tongue Acute Condition: IMPROVED Additional Instructions: -Discharge home with education on avoid chewing or biting food, only drink from straw, if bleeding happen again then use the tea bag to compress on the bleeding site, follow up with your own pmd and dental within 2 days, return to the ER for any new or worsening signs or symptoms. Referrals: Luz Elena Vazquez MD [Primary Care Provider] - Follow up with primary Yann Maciel DMD [Non-Staff] - Follow up with primary Forms: WORK NOTE
[2017-03-08 15:44] VITALS: O2SAT 100
[2017-03-08] MEDS ORDERED: Silver Nitrate Topical - Stick TOP ONE (16:09)
[2017-03-08 16:36] VITALS: BP 154/86; PULSE 76; RESP 19; TEMP 98.6
== END 2017-03-08 16:32 | disposition home or self-care (01) ==
LOC: ED 15:18
DX: K14.8 Other diseases of tongue (principal); E78.5 Hyperlipidemia, unspecified; I10 Essential (primary) hypertension; I25.10 Atherosclerotic heart disease of native coronary artery without angina pectoris; N40.0 Benign prostatic hyperplasia without lower urinary tract symptoms